=== PATIENT | male | born 1965 | race Caucasian/White ===

== ENCOUNTER 2018-05-31 11:42 | Outpatient (CLI) | payer OTHER, SELFPAY ==
--- NOTE | 2018-05-31 11:54 | DI.RAD_ITS ---
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 There is some sclerosis and irregularity of the patella presumably secondary to an old injury. There may be a small joint effusion. No acute fracture or dislocation is seen.
== END 2018-05-31 12:02 ==
PROVIDERS: PCP Emergency Medicine; Visit Provider Internal Medicine
DX: M25.561 Pain in right knee (principal); M17.11 Unilateral primary osteoarthritis, right knee; M25.461 Effusion, right knee
CPT/HCPCS: 73562

== ENCOUNTER 2018-06-07 14:44 | Emergency (ER) | payer OTHER, SELFPAY ==
[2018-06-07 14:47] VITALS: BP 137/75; PULSE 95; RESP 12; TEMP 36.5; O2SAT 96
--- NOTE | 2018-06-07 15:02 | W.ED.GENAD ---
Discharge Plan Disposition Patient Disposition: HOME Condition: Stable Discharge Details Chief Complaint: Palpitatns Clinical Impression: Palpitations Primary Care Provider: Zion Zepeda ED Provider: Eliseo Jim Home Meds and New Rx's Prescriptions: No Action BABY ASPIRIN 81 MG TAB.CHEW 81 mg PO DAILY RF: 0 Stelara 45 MG/0.5 ML syringe 45 mg SQ every 12 weeks Qty: 1 RF: 12 atorvastatin 80 mg tablet 80 mg PO DAILY Qty: 90 RF: 3 metoprolol succinate 50 mg tablet extended release 24 hr 50 mg PO DAILY Qty: 90 RF: 0 Discharge Instructions Instructions: Palpitations (ED) Additional Instructions: follow up with your primary care provider or stratigrapher within a week and discuss having a holter monitor or other library monitor if you have worsening symptoms, severe pain or shortness of breath return to the emergency department Medical Decision Making 52 yo male with hx of cad, aaa with repair, comes in with chief complaint of palpitations. He states he went to bed feeling well and then had 10 minutes or so of feeling his heart racing, did not lose consciousness or have sensation that he may lose consciousness. He denies fevers, chills, chest pain, sob. Had no pain or pressure with this. 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 He is speaking in full sentences in no distress, clear lungs. Given his history will obtain troponin to eval for nstemi though seems unlikely given description of the pain. Given no feeling like he may lose consciousness doubt presyncope, vtach or other concerning arrythmias. No tearing back pain and normal vascular exam sodoubt dissection. No hypoxia, tachycardia or evidence of dvt so doubt pe at this time pt remains asymptomatic now, labs unremarkable. will d/c home and advised f/u with pcp and return precautions given Differential Diagnosis afib, svt, acs Lab Data Lab results reviewed: Yes I reviewed the patient's lab results. ECG Data Attestation: I personally reviewed and interpreted this ECG (s) as follows: Prior ECG tracings: available for review Interpretation: sinus rhythm, rate of 70, pr 156, qtc 424, no acute st t wave ischemic changes when compared to old ekg HPI General Mode of arrival: ambulatory. Date/Time Provider Initiated Documentation: 06/07/18 14:55. Limitations to Documentation: no limitations. Information obtained by: patient. History of Present Illness 52 year old M presents to the emergency department with the chief complaint of palpitations, described as moderate, and is localized to the chest. Patient reports no radiation. Patient started experiencing this day(s) (1) and it has been now resolved. No relieving factors improve symptom(s), No exacerbating factors reported . Patient notes no other symptoms.. Patient did receive the following treatments prior to arrival, none Related Data Home Medications Medication Instructions Recorded Confirmed Baby Aspirin 81 mg PO DAILY tab-cap 11/15/12 06/07/18 ustekinumab [Stelara] 45 mg SQ every 12 weeks #1 syringe 10/28/15 06/07/18 atorvastatin 80 mg tablet 80 mg PO DAILY #90 tab-cap 05/08/18 06/07/18 metoprolol succinate ER 50 mg 50 mg PO DAILY #90 tab 05/08/18 06/07/18 tablet,extended release 24 hr Previous Rx's Medication Instructions Recorded atorvastatin 80 mg tablet 80 mg PO DAILY #90 tab-cap 05/08/18 metoprolol succinate ER 50 mg 50 mg PO DAILY #90 tab 05/08/18 tablet,extended release 24 hr Allergies Allergy/AdvReac Type Severity Reaction Status Date / Time adalimumab [From Humira] Allergy Intermediate hives Unverified 05/31/18 10:33 General Stated Complaint: Palpitatns EZEQUIEL: 3 Review of Systems Review of Systems All systems reviewed & are unremarkable except as noted in HPI and below Constitutional Denies chills, Denies fever(s) and Denies weakness Cardiovascular Denies dyspnea Respiratory Denies cough and Denies dyspnea Gastrointestinal Denies abdominal pain, Denies nausea and Denies vomiting Musculoskeletal Denies joint swelling Integumentary/Breasts Denies rash Neurologic Denies weakness [facility] Surgical History Repair of inguinal hernia (~2001) Stent placement (~2002) Vasectomy (~2001) Social History Smoking/Tobacco Use Status: Never Alcohol Intake: never Substance use type: marijuana Do you feel safe in your relationship?: Yes Exam Const General: no acute distress Orientation: alert HENTX Head: normal to inspection Ears: external ears normal General nose exam: external nose normal Mouth: moist mucous membranes Eyes General: appearance normal, both eyes and all related structures Neck Neck: normal visual inspection Resp Effort & Inspection: normal respiratory effort and able to speak in complete sentences Cardio Rate: regular rate Skin General skin exam: no rashes or lesions noted Neuro General: alert and oriented x3 Extrem General: normal to inspection Psych Mental Status: mental status grossly normal Course Vital Signs Temperature 36.5 C 06/07/18 14:47 Pulse 95 H 06/07/18 14:47 Respiratory Rate 12 06/07/18 14:47 Blood Pressure 137/75 06/07/18 14:47 Pulse Oximetry 96 06/07/18 14:47 Temperature 36.5 C 06/07/18 14:47 Temperature Source Temporal Artery Scan 06/07/18 14:47 Pulse 95 H 06/07/18 14:47 Respiratory Rate 12 06/07/18 14:47 Blood Pressure 137/75 06/07/18 14:47 Blood Pressure Position Sitting 06/07/18 14:47 Pulse Oximetry 96 06/07/18 14:47 Oxygen Delivery Method Room Air 06/07/18 14:47 Oxygen Flow Rate 0 06/07/18 14:47 Pain Level 0 06/07/18 14:47
[2018-06-07 15:06] LABS: Abs Immature Grans 0.03 k/cumm (0.0-0.09); Absolute Basophil Count 0.07 k/cumm (0.0-0.2); Absolute Eosinophil Count 0.47 k/cumm (0.0-0.7); Absolute Lymphocyte Count 2.38 k/cumm (1.2-3.4); Absolute Monocyte Count 0.66 k/cumm (0.11-0.7); Absolute Neutrophil Count 4.47 k/cumm (1.2-6.7); Basophils % 0.9; Eosinophils % 5.8; Immature Grans % 0.4; Lymphocytes % 29.5; Mean Corp. HGB Concentration 34.8 g/dL (32.0-36.0); Mean Corpuscular Hemoglobin 31.4 pg (27.0-33.0); Mean Corpuscular Volume 90.4 fL (80-95); Mean Platelet Volume 9.4 fL (8.0-11.0); Monocytes % 8.2; Neutrophils % 55.2; Platelet Count 248 x1000/uL (130-400); RBC 5.09 m/cumm (4.50-6.00); RBC Distribution Width 14.9 % (11.8-14.1); White Blood Cell Count 8.08 k/cumm (4.4-10.8)
--- NOTE | 2018-06-07 15:08 | ED.GENADUL_ITS ---
Discharge Plan Disposition Patient Disposition: HOME Condition: Stable Discharge Details Chief Complaint: Palpitatns Clinical Impression: Palpitations Primary Care Provider: Zion Zepeda ED Provider: Eliseo Jim Home Meds and New Rx's Prescriptions: No Action BABY ASPIRIN 81 MG TAB.CHEW 81 mg PO DAILY RF: 0 Stelara 45 MG/0.5 ML syringe 45 mg SQ every 12 weeks Qty: 1 RF: 12 atorvastatin 80 mg tablet 80 mg PO DAILY Qty: 90 RF: 3 metoprolol succinate 50 mg tablet extended release 24 hr 50 mg PO DAILY Qty: 90 RF: 0 Discharge Instructions Instructions: Palpitations (ED) Additional Instructions: follow up with your primary care provider or director of athletics within a week and discuss having a holter monitor or other cardiac rn if you have worsening symptoms, severe pain or shortness of breath return to the emergency department Medical Decision Making 52 yo male with hx of cad, aaa with repair, comes in with chief complaint of palpitations. He states he went to bed feeling well and then had 10 minutes or so of feeling his heart racing, did not lose consciousness or have sensation that he may lose consciousness. He denies fevers, chills, chest pain, sob. Had no pain or pressure with this. 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 He is speaking in full sentences in no distress, clear lungs. Given his history will obtain troponin to eval for nstemi though seems unlikely given description of the pain. Given no feeling like he may lose consciousness doubt presyncope, vtach or other concerning arrythmias. No tearing back pain and normal vascular exam sodoubt dissection. No hypoxia, tachycardia or evidence of dvt so doubt pe at this time pt remains asymptomatic now, labs unremarkable. will d/c home and advised f/u with pcp and return precautions given Differential Diagnosis afib, svt, acs Lab Data Lab results reviewed: Yes I reviewed the patient's lab results. ECG Data Attestation: I personally reviewed and interpreted this ECG (s) as follows: Prior ECG tracings: available for review Interpretation: sinus rhythm, rate of 70, pr 156, qtc 424, no acute st t wave is chemic changes when compared to old ekg HPI General Mode of arrival: ambulatory . Date/Time Provider Initiated Documentation: 06/07/18 14:55 . Limitations to Documentation: no limitations . Information obtained by: patient . History of Present Illness 52 year old M presents to the emergency department with the chief complaint of palpitations, described as moderate, and is localized to the chest. Patient reports no radiation. Patient started experiencing this day(s) (1) and it has been now resolved. No relieving factors improve symptom(s), No exacerbating factors reported . Patient notes no other symptoms.. Patient did receive the following treatments prior to arrival, none Related Data Home Medications Medication Instructions Recorded Confirmed Baby Aspirin 81 mg PO DAILY tab-cap 11/15/12 06/07/18 ustekinumab [Stelara] 45 mg SQ every 12 weeks #1 syringe 10/28/15 06/07/18 atorvastatin 80 mg tablet 80 mg PO DAILY #90 tab-cap 05/08/18 06/07/18 metoprolol succinate ER 50 mg 50 mg PO DAILY #90 tab 05/08/18 06/07/18 tablet,extended release 24 hr Previous Rx's Medication Instructions Recorded atorvastatin 80 mg tablet 80 mg PO DAILY #90 tab-cap 05/08/18 metoprolol succinate ER 50 mg 50 mg PO DAILY #90 tab 05/08/18 tablet,extended release 24 hr Allergies Allergy/AdvReac Type Severity Reaction Status Date / Time adalimumab [From Humira] Allergy Intermediate hives Unverified 05/31/18 10:33 General Stated Complaint: Palpitatns EZEQUIEL: 3 Review of Systems Review of Systems All systems reviewed & are unremarkable except as noted in HPI and below Constitutional Denies chills, Denies fever(s) and Denies weakness Cardiovascular Denies dyspnea Respiratory Denies cough and Denies dyspnea Gastrointestinal Denies abdominal pain, Denies nausea and Denies vomiting Musculoskeletal Denies joint swelling Integumentary/Breasts Denies rash Neurologic Denies weakness [facility] Surgical History Repair of inguinal hernia (~2001) Stent placement (~2002) Vasectomy (~2001) Social History Smoking/Tobacco Use Status: Never Alcohol Intake: never Substance use type: marijuana Do you feel safe in your relationship?: Yes Exam Const General: no acute distress Orientation: alert HENMT Head: normal to inspection Ears: external ears normal General nose exam: external nose normal Mouth: moist mucous membranes Eyes General: appearance normal, both eyes and all related structures Neck Neck: normal visual inspection Resp Effort & Inspection: normal respiratory effort and able to speak in complete sentences Cardio Rate: regular rate Skin General skin exam: no rashes or lesions noted Neuro General: alert and oriented x3 Extrem General: normal to inspection Psych Mental Status: mental status grossly normal Course Vital Signs Temperature 36.5 C 06/07/18 14:47 Pulse 95 H 06/07/18 14:47 Respiratory Rate 12 06/07/18 14:47 Blood Pressure 137/75 06/07/18 14:47 Pulse Oximetry 96 06/07/18 14:47 Temperature 36.5 C 06/07/18 14:47 Temperature Source Temporal Artery Scan 06/07/18 14:47 Pulse 95 H 06/07/18 14:47 Respiratory Rate 12 06/07/18 14:47 Blood Pressure 137/75 06/07/18 14:47 Blood Pressure Position Sitting 06/07/18 14:47 Pulse Oximetry 96 06/07/18 14:47 Oxygen Delivery Method Room Air 06/07/18 14:47 Oxygen Flow Rate 0 06/07/18 14:47 Pain Level 0 06/07/18 14:47
[2018-06-07 15:20] LABS: PTT Activated 22.1 sec (21.0-31.4)
[2018-06-07 15:40] VITALS: BP 112/66; PULSE 65; RESP 16; O2SAT 24
[2018-06-07 15:46] LABS: ALT 74 U/L (12-78); AST 46 U/L (15-37); Albumin 4.4 g/dL (3.4-5.0); Alkaline Phosphatase 73 U/L (46-116); Anion Gap 8.4 mmol/L (3-11); BUN 13 mg/dL (7-18); Bilirubin, Total 0.7 mg/dL (0.2-1.0); CO2 29.6 mmol/L (21.0-32.0); CREATININE 0.92 mg/dL (0.70-1.30); Calcium 9.4 mg/dL (8.5-10.1); Chloride 99 mmol/L (98-107); Glucose 86 mg/dL (70-100); Potassium 3.9 mmol/L (3.5-5.1); Sodium 137 mmol/L (136-145); Total Protein 8.5 g/dL (6.4-8.2); Troponin I 0.02 ng/mL (0.00-0.06)
== END 2018-06-07 15:59 | disposition home or self-care (01) ==
PROVIDERS: Emergency Provider Emergency Medicine; PCP Emergency Medicine
DX: R00.2 Palpitations (principal); I25.10 Atherosclerotic heart disease of native coronary artery without angina pectoris; I10 Essential (primary) hypertension; Z98.890 Other specified postprocedural states
CPT/HCPCS: 36415; 80053; 93005; 99284; 84484; 85025; 85610; 85730; 93010

== ENCOUNTER 2018-06-13 01:03 | Outpatient (CLI) | payer OTHER, SELFPAY ==
--- NOTE | 2018-06-13 14:01 | DI.MRI_ITS ---
SYMPTOMS/DIAGNOSIS: RIGHT KNEE PAIN, M25.561, PERSONAL H/O HEALED TRAUMATIC FX, Z87.81 MRI OF THE RIGHT KNEE: Routine noncontrast examination was performed. There is no evidence of a meniscal tear. The anterior cruciate and posterior cruciate ligaments are intact, as are the medial and lateral collateral ligament complexes, extensor mechanism and medial and lateral retinacula. There is thinning of the articular cartilage and subchondral edema at the patellofemoral joint. The articular cartilage over the femorotibial joints appears well maintained. There is a small amount of fluid in the joint space. No evidence of a popliteal cyst is seen. The marrow signal shows no evidence of an occult fracture or avascular necrosis. There is edema seen around the popliteus muscle. There does appear to be some increased signal within the popliteus muscle also. IMPRESSION: 1. No evidence of a meniscal or ligament tear. 2. Osteoarthritis of the patellofemoral joint. 3. Edema seen within and around the popliteus muscle. This may reflect muscle injury. No evidence of a complete muscle tear is identified.
== END 2018-06-13 01:23 ==
PROVIDERS: PCP Emergency Medicine; Visit Provider Internal Medicine
DX: M25.561 Pain in right knee (principal); Z87.81 Personal history of (healed) traumatic fracture; M17.11 Unilateral primary osteoarthritis, right knee; R60.0 Localized edema
CPT/HCPCS: 73721

== ENCOUNTER 2018-06-14 00:16 | Outpatient (CLI) | payer OTHER, SELFPAY ==
--- NOTE | 2018-06-14 06:57 | MERGEMPI_ITS ---
*[facility]* *[facility]* [address] [place] [address] Myocardial Perfusion Imaging - SPECT Angel protocol Date of study: 06/14/2018 *PATIENT PRESENTATION* Height: 172.7cm (68in) Blood Pressure: Weight: 95.5kg (210lb) BSA: 2.17m^2 Referring physician: Sarthak Malone Ordering physician: Zion Zepeda Impressions: Study suggests moderate myocardial ischemia, in the territory of the left circumflex coronary artery. Summary: 1. Myocardial perfusion imaging: There is a moderate sized, moderately intense, fully reversible defect involving the basal anterolateral and mid anterolateral and apical lateral wall(s). This suggests moderate ischemia in the distribution of the left circumflex coronary artery. 2. The calculated left ventricular ejection fraction after stress: 46%. LV global systolic function is mildly reduced. There is hypokinesis involving the anterolateral wall(s) of the left ventricle. 3. Stress ECG conclusions: The stress ECG is positive. 4. Stress: The target heart rate was not achieved. The heart rate response to stress is blunted by beta blockers. There is a normal resting blood pressure with an appropriate response to stress. The patient experienced no chest pain during stress. Exercise capacity is above normal for age. 5. Baseline ECG: Sinus bradycardia. Nonspecific ST and T wave changes. Recommendations: Cardiac catheterization should be performed. This procedure has been discussed with the patient. 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 Indication: R00.2, Appropriate Use Criteria: A (Appropriate). History: REASON FOR VISIT: PALPITATIONS, ARRYTHMIA, HISTORY OF MYOCARDIAL INFARCTION AT AGE 38 YEARS. CARDIAC STENT X2. PT DENIES CHEST PAINS. Risk factors: Hypertension. Obesity. Dyslipidemia. Cholesterol: 143mg/dl. HDL: 36mg/dl. LDL: 78mg/dl. Triglycerides: 241mg/dl. ALLERGIES: ADALIMUMAB. MEDICATIONS: USTEKINUMAB (STELARA) 45 MG SQ EVERY 12 WEEKS. METOPROLOL SUCCINATE 50 MG DAILY. ATORVASTATIN 80 MG DAILY. ASPIRIN 81 MG DAILY. Imaging Technique: Protocol: Angel protocol. Acquisition: Gated SPECT; 1 day - rest/stress. The patient was imaged in the supine position. Attenuation correction used. Isotope administration: - Rest. Tc[99m]-sestamibi. Dose: 9.9mCi. Injection time: 11:30 AM. Injection to stress time: 00:45. - Stress. Tc[99m]-sestamibi. Dose: 31.6mCi. Injection time: 01:25 PM. 1-2 min before end of exercise Baseline ECG: SINUS BRADYCARDIA. HR 51 BPM. Sinus bradycardia. Nonspecific ST and T wave changes. Stress results: Maximal heart rate during stress was 124bpm (73% of maximal predicted heart rate). The maximal predicted heart rate was 170bpm. The target heart rate was not achieved. The heart rate response to stress is blunted by beta blockers. There is a normal resting blood pressure with an appropriate response to stress. The patient experienced no chest pain during stress. Exercise capacity is above normal for age. Stress ECG: TREADMILL PORTION OF STRESS TEST ENDED IN 12 MINUTES DUE TO FATIGUE BLUNTED HEART RATE AND BLOOD PRESSURE RESPONSE TO EXERCISE PT DID NOT MEET TARGET HEART RATE. MAX HR = 124 % OF TARGET = 72 NO ECTOPY APPROXIMATE METS ACHIEVED = 13.57 NO ANGINA NO SIGNIFICANT ST SEGMENT CHANGES ABOVE AVERAGE FUNCTIONAL CAPACITY FOR EXERCISE TRANSITIONED PT TO LEXISCAN PROTOCOL AFTER PT REACHED 72% OF TARGET HR AND UNABLE TO EXERCISE ANY FURTHER. NO ECTOPY NO ANGINA. ST SEGMENT DEPRESSIONS NOTED IN LEADS V3, V4, V5 AND V6 1 MINUTE & 22 SECON[address]AN INJECTION. [address] SEGMENTS RETURNED TO BASELINE 8 MINUTES POST LEXISCAN INJECTION. The stress ECG is positive. Stress ECG change: horizontal depression. Severity: 1.5-2.0mm. In lead groups: V4, V5 and V6. In individual leads:V3. Myocardial perfusion: Imaging information: gated. The image quality was good. Left ventricular size is normal. There is a moderate sized, moderately intense, fully reversible defect involving the basal anterolateral and mid anterolateral and apical lateral wall(s). This suggests moderate ischemia in the distribution of the left circumflex coronary artery. Ventricular Function (Wall Motion): The calculated left ventricular ejection fraction after stress: 46%. LV global systolic function is mildly reduced. There is hypokinesis involving the anterolateral wall(s) of the left ventricle. Study data: Sarthak Malone MD supervised and was readily available during the procedure. This study was interpreted by [facility]. Study status: Routine. Consent: The risks, benefits, and alternatives to the procedure were explained to the patient and informed consent was obtained. Procedure: Initial setup. A baseline ECG was recorded. Surface ECG leads and manual cuff blood pressure measurements were monitored. Heart sounds: Normal. Lung sounds: Normal. Treadmill exercise testing was performed using the Angel protocol. The patient exercised for 12 min, to protocol stage 4, to a maximal work rate of 13.6mets. Exercise was terminated due to fatigue. Study completion: All catheters inserted during the procedure were removed. The patient tolerated the procedure well and was discharged from the lab. Discharge: The patient left the laboratory in stable condition. Birthdate: Patient birthdate: 1965. Sex: Gender: male. Study date: Study date: 06/14/2018. Study time: 00:01 AM. Signature Documentation: - The imaging portion of this study was interpreted by Nuclear Punch Out Crew Member Sarthak Malone MD. - The Stress ECG portion of this study was interpreted by Sarthak Malone MD. Electronically signed by Sarthak Malone 06/14/2018 16:05
[2018-06-14] MEDS: Regadenoson 0.4 MG/5 ML SYR IVP (14:15)
== END 2018-06-14 00:36 ==
PROVIDERS: PCP Emergency Medicine; Visit Provider Emergency Medicine
DX: R00.2 Palpitations (principal); I25.10 Atherosclerotic heart disease of native coronary artery without angina pectoris; I25.2 Old myocardial infarction; E78.5 Hyperlipidemia, unspecified; I10 Essential (primary) hypertension
CPT/HCPCS: 78452; 93017; J2785

== ENCOUNTER 2018-06-28 08:39 | Emergency (ER) | payer OTHER, SELFPAY ==
[2018-06-28] VITALS (75 sets, daily range): BP systolic 115–143; BP diastolic 66–104; PULSE 55–84; RESP 15–29; TEMP 36.3; O2SAT 93–98
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
[2018-06-28 09:27] LABS: Abs Immature Grans 0.05 k/cumm (0.0-0.09); Absolute Basophil Count 0.04 k/cumm (0.0-0.2); Absolute Eosinophil Count 0.42 k/cumm (0.0-0.7); Absolute Lymphocyte Count 1.22 k/cumm (1.2-3.4); Absolute Monocyte Count 0.53 k/cumm (0.11-0.7); Absolute Neutrophil Count 4.83 k/cumm (1.2-6.7); Basophils % 0.6; Eosinophils % 5.9; HCT 45.1 % (40.0-50.0); HGB 15.7 g/dL (13.5-17.5); Immature Grans % 0.7; Lymphocytes % 17.2; Mean Corp. HGB Concentration 34.8 g/dL (32.0-36.0); Mean Corpuscular Hemoglobin 31.7 pg (27.0-33.0); Mean Corpuscular Volume 91.1 fL (80-95); Mean Platelet Volume 9.2 fL (8.0-11.0); Monocytes % 7.5; Neutrophils % 68.1; Platelet Count 194 x1000/uL (130-400); RBC 4.95 m/cumm (4.50-6.00); RBC Distribution Width 14.7 % (11.8-14.1); White Blood Cell Count 7.09 k/cumm (4.4-10.8)
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
[2018-06-28 09:40] LABS: Prothrombin Time 9.9 sec (9.3-11.0)
[2018-06-28 09:49] LABS: NT-proBNP 72 pg/mL
[2018-06-28 09:52] LABS: ALT 79 U/L (12-78); AST 44 U/L (15-37); Albumin 4.1 g/dL (3.4-5.0); Alkaline Phosphatase 68 U/L (46-116); Anion Gap 9.5 mmol/L (3-11); BUN 14 mg/dL (7-18); Bilirubin, Total 0.6 mg/dL (0.2-1.0); CO2 27.5 mmol/L (21.0-32.0); CREATININE 0.92 mg/dL (0.70-1.30); Calcium 9.3 mg/dL (8.5-10.1); Chloride 102 mmol/L (98-107); Glucose 112 mg/dL (70-100); Potassium 4.4 mmol/L (3.5-5.1); Sodium 139 mmol/L (136-145); Total Protein 8.1 g/dL (6.4-8.2)
[2018-06-28 09:54] LABS: Troponin I < 0.02 ng/mL (0.00-0.06)
--- NOTE | 2018-06-28 10:13 | NUR.NOTE ---
Nursing Note: DC IV intact bleeding controlled. discussed discharge instructions, rx meds and follow up care with pt. Pt verbalized an understanding. PT ambulated out the door with steady gait.
[2018-06-28] MEDS: Acetaminophen 325 MG TAB (13:58)
[2018-06-28] MEDS: Ibuprofen 600 MG TAB PO (13:59)
[2018-06-28 15:41] LABS: Troponin I < 0.02 ng/mL (0.00-0.06)
--- NOTE | 2018-06-28 16:30 | PGE_ITS ---
Date of Service Date of service: 06/28/18 Time of Service: 16:30 Subjective Interval history since last seen: Patient left AMA prior to formal admission being done. I did speak with him about the fact that his condition is critical and that he should strongly consider going to [facility] since [facility] does not have any available beds. He verbalized understanding. Objective Objective Clinical Data: Abnormal lab results 06/28/18 06/28/18 Range/Units 09:20 09:20 RDW 14.7 H (11.8-14.1) % Glucose 112 H (70-100) mg/dL AST 44 H (15-37) U/L ALT 79 H (12-78) U/L Vital Signs Temperature 36.3 C L 06/28/18 08:51 Temperature Source Skin 06/28/18 08:51 Pulse 83 06/28/18 16:01 Pulse 81 06/28/18 16:01 Respiratory Rate 20 06/28/18 16:01 Respiratory Effort Non-Labored 06/28/18 09:41 Respiratory Depth Normal 06/28/18 09:41 Respiratory Pattern Normal 06/28/18 09:41 Blood Pressure 137/77 06/28/18 16:01 Blood Pressure Mean 88 06/28/18 16:01 Blood Pressure Position Supine 06/28/18 08:51 Pulse Oximetry 95 06/28/18 16:01 Oxygen Delivery Method Room Air 06/28/18 08:51 Oxygen Flow Rate 0 06/28/18 08:51 Pain Level 0 06/28/18 10:10 Intake & Output 06/27/18 06/28/18 06/28/18 23:59 11:59 23:59 Weight 95.254 kg Laboratory Results WBC 7.09 k/cumm (4.4-10.8) 06/28/18 09:20 RBC 4.95 m/cumm (4.50-6.00) 06/28/18 09:20 Hgb 15.7 g/dL (13.5-17.5) 06/28/18 09:20 Hct 45.1 % (40.0-50.0) 06/28/18 09:20 MCV 91.1 fL (80-95) 06/28/18 09:20 MCH 31.7 pg (27.0-33.0) 06/28/18 09:20 MCHC 34.8 g/dL (32.0-36.0) 06/28/18 09:20 RDW 14.7 % (11.8-14.1) H 06/28/18 09:20 Plt Count 194 x1000/uL (130-400) 06/28/18 09:20 MPV 9.2 fL (8.0-11.0) 06/28/18 09:20 Immature Gran % 0.7 06/28/18 09:20 Neutrophils % 68.1 06/28/18 09:20 Lymphocytes % 17.2 06/28/18 09:20 Monocytes % 7.5 06/28/18 09:20 Eosinophils % 5.9 06/28/18 09:20 Basophils % 0.6 06/28/18 09:20 Absolute Neutrophils 4.83 k/cumm (1.2-6.7) 06/28/18 09:20 Absolute Lymphocytes 1.22 k/cumm (1.2-3.4) 06/28/18 09:20 Absolute Monocytes 0.53 k/cumm (0.11-0.7) 06/28/18 09:20 Absolute Eosinophils 0.42 k/cumm (0.0-0.7) 06/28/18 09:20 Absolute Basophils 0.04 k/cumm (0.0-0.2) 06/28/18 09:20 PT 9.9 sec (9.3-11.0) 06/28/18 09:20 INR 1.0 (0.9-1.1) 06/28/18 09:20 Sodium 139 mmol/L (136-145) 06/28/18 09:20 Potassium 4.4 mmol/L (3.5-5.1) 06/28/18 09:20 Chloride 102 mmol/L (98-107) 06/28/18 09:20 Carbon Dioxide 27.5 mmol/L (21.0-32.0) 06/28/18 09:20 Anion Gap 9.5 mmol/L (3-11) 06/28/18 09:20 BUN 14 mg/dL (7-18) 06/28/18 09:20 Creatinine 0.92 mg/dL (0.70-1.30) 06/28/18 09:20 Estimated GFR/1.73 m2 >= 60.00 (mL/min/1.73m2) 06/28/18 09:20 Glucose 112 mg/dL (70-100) H 06/28/18 09:20 Calcium 9.3 mg/dL (8.5-10.1) 06/28/18 09:20 Total Bilirubin 0.6 mg/dL (0.2-1.0) 06/28/18 09:20 AST 44 U/L (15-37) H 06/28/18 09:20 ALT 79 U/L (12-78) H 06/28/18 09:20 Alkaline Phosphatase 68 U/L (46-116) 06/28/18 09:20 Troponin I < 0.02 ng/mL (0.00-0.06) 06/28/18 15:10 NT-Pro-B Natriuret Pep 72 pg/mL (-299) 06/28/18 09:20 Total Protein 8.1 g/dL (6.4-8.2) 06/28/18 09:20 Albumin 4.1 g/dL (3.4-5.0) 06/28/18 09:20 Patient ABO/Rh B Positive 06/28/18 09:20 Antibody Screen Negative 06/28/18 09:20
--- NOTE | 2018-06-28 18:24 | NUR.NOTE ---
Nursing Note: At the request of the nursing marketing sales supervisor, Jennifer Clark, I faxed today's entire ED visit to [facility]. Patient presented there for care and this was at their request. Maru Clark. Fax [facility] [phone]
== END 2018-06-28 16:24 | disposition left against medical advice (07) ==
PROVIDERS: Internal Medicine; Emergency Provider Student in an Organized Health Care Education/Training Program; PCP Emergency Medicine
DX: R55 Syncope and collapse (principal); S50.312A Abrasion of left elbow, initial encounter; S00.01XA Abrasion of scalp, initial encounter; V86.55XA Driver of 3- or 4- wheeled all-terrain vehicle (ATV) injured in nontraffic accident, initial encounter; R07.81 Pleurodynia; R94.31 Abnormal electrocardiogram [ECG] [EKG]; R94.39 Abnormal result of other cardiovascular function study; I10 Essential (primary) hypertension; I25.10 Atherosclerotic heart disease of native coronary artery without angina pectoris; Z53.29 Procedure and treatment not carried out because of patient's decision for other reasons
CPT/HCPCS: 36415; 80053; 86850; 86900; 86901; 93005; 99285; NC; 70450; 71046; 71100; 72125; 83880; 84484; 85025; 85610; 93010; 99284

== ENCOUNTER 2018-07-14 08:43 | Outpatient (CLI) | payer OTHER, SELFPAY ==
[2018-07-14 11:15] LABS: HCT 28.6 % (40.0-50.0); HGB 9.2 g/dL (13.5-17.5); Mean Corp. HGB Concentration 32.2 g/dL (32.0-36.0); Mean Corpuscular Hemoglobin 31.7 pg (27.0-33.0); Mean Corpuscular Volume 98.6 fL (80-95); Mean Platelet Volume 8.9 fL (8.0-11.0); Platelet Count 424 x1000/uL (130-400); White Blood Cell Count 13.51 k/cumm (4.4-10.8)
[2018-07-14 11:24] LABS: BUN 19 mg/dL (7-18); CREATININE 0.97 mg/dL (0.70-1.30); Calcium 9.1 mg/dL (8.5-10.1); Chloride 101 mmol/L (98-107); Glucose 145 mg/dL (70-100); Potassium 4.5 mmol/L (3.5-5.1); Sodium 136 mmol/L (136-145)
[2018-07-14 11:32] LABS: INR 1.8 (0.9-1.1); Prothrombin Time 17.7 sec (9.3-11.0)
[2018-07-14 11:38] LABS: Creatine Kinase 87 U/L (39-308)
== END 2018-07-14 09:03 ==
PROVIDERS: PCP Emergency Medicine; Visit Provider Emergency Medicine
DX: Z95.1 Presence of aortocoronary bypass graft (principal); I10 Essential (primary) hypertension
CPT/HCPCS: 36415; 80048; 82550; 85027; 85610

== ENCOUNTER 2018-07-19 01:01 | Outpatient (CLI) | payer OTHER, SELFPAY ==
--- NOTE | 2018-07-19 08:58 | DI.RAD_ITS ---
SYMPTOM/DIAGNOSIS: S/P CABG, Z95.1, S/P MVR,Z95.2 PA AND LATERAL CHEST: Comparison is made with 06/28/18. Heart size and pulmonary vasculature are within normal limits. The patient is status post CABG and mitral valve replacement since the prior examination. There is blunting of the left costophrenic angle suggesting a small left pleural effusion. There is scarring or atelectasis in the left lung base. No focal consolidating infiltrates or pneumothoraces are identified. No acute osseous abnormality is identified. IMPRESSION: 1. Interim status post CABG and mitral valve replacement. 2. Blunting of the left costophrenic angle suggesting a small pleural effusion.
== END 2018-07-19 01:21 ==
PROVIDERS: PCP Emergency Medicine
DX: Z95.1 Presence of aortocoronary bypass graft (principal); Z95.2 Presence of prosthetic heart valve; J90 Pleural effusion, not elsewhere classified
CPT/HCPCS: 71046

== ENCOUNTER 2018-07-31 02:32 | Outpatient (CLI) | payer OTHER, SELFPAY ==
[2018-07-31 10:58] LABS: INR 3.6 (0.9-1.1); Prothrombin Time 36.7 sec (9.3-11.0)
== END 2018-07-31 02:52 ==
PROVIDERS: Thoracic Surgery (Cardiothoracic Vascular Surgery); PCP Emergency Medicine; Visit Provider Emergency Medicine
DX: Z95.2 Presence of prosthetic heart valve (principal); Z79.01 Long term (current) use of anticoagulants; I25.10 Atherosclerotic heart disease of native coronary artery without angina pectoris
CPT/HCPCS: 36415; 85610

== ENCOUNTER 2018-08-03 06:58 | Outpatient (CLI) | payer OTHER, SELFPAY ==
[2018-08-03 13:05] LABS: INR 2.7 (0.9-1.1); Prothrombin Time 27.4 sec (9.3-11.0)
== END 2018-08-03 07:18 ==
LOC: LBO 07:00 → LOS 12:50
PROVIDERS: PCP Emergency Medicine; Visit Provider Thoracic Surgery (Cardiothoracic Vascular Surgery)
DX: Z95.2 Presence of prosthetic heart valve (principal); Z79.01 Long term (current) use of anticoagulants
CPT/HCPCS: 36415; 85610

== ENCOUNTER 2018-08-07 11:35 | Outpatient (CLI) | payer OTHER, SELFPAY ==
[2018-08-07 15:33] LABS: Prothrombin Time 25.7 sec (9.3-11.0)
[2018-08-07 15:39] LABS: INR 2.5 (0.9-1.1)
== END 2018-08-07 11:55 ==
PROVIDERS: PCP Emergency Medicine; Visit Provider Thoracic Surgery (Cardiothoracic Vascular Surgery)
DX: Z95.2 Presence of prosthetic heart valve (principal); Z79.01 Long term (current) use of anticoagulants
CPT/HCPCS: 36415; 85610

== ENCOUNTER 2018-08-15 02:10 | Outpatient (CLI) | payer OTHER, SELFPAY ==
[2018-08-15 11:53] LABS: INR 2.1 (0.9-1.1); Prothrombin Time 21.5 sec (9.3-11.0)
== END 2018-08-15 02:30 ==
PROVIDERS: PCP Emergency Medicine; Visit Provider Emergency Medicine
DX: Z95.2 Presence of prosthetic heart valve (principal); Z79.01 Long term (current) use of anticoagulants
CPT/HCPCS: 36415; 85610

== ENCOUNTER 2018-08-22 02:42 | Outpatient (CLI) | payer OTHER, SELFPAY ==
[2018-08-22 14:16] LABS: Prothrombin Time 20.4 sec (9.3-11.0)
== END 2018-08-22 03:02 ==
LOC: LOS 02:42 → LBO 13:37
PROVIDERS: PCP Emergency Medicine; Visit Provider Emergency Medicine
DX: I25.10 Atherosclerotic heart disease of native coronary artery without angina pectoris (principal); Z95.2 Presence of prosthetic heart valve; Z79.01 Long term (current) use of anticoagulants
CPT/HCPCS: 36415; 85610

== ENCOUNTER 2018-08-25 08:46 | Outpatient (CLI) | payer OTHER, SELFPAY ==
[2018-08-25 10:36] LABS: INR 1.9 (0.9-1.1); Prothrombin Time 18.8 sec (9.3-11.0)
== END 2018-08-25 09:06 ==
PROVIDERS: PCP Emergency Medicine; Visit Provider Thoracic Surgery (Cardiothoracic Vascular Surgery)
DX: Z95.2 Presence of prosthetic heart valve (principal); Z79.01 Long term (current) use of anticoagulants
CPT/HCPCS: 36415; 85610

== ENCOUNTER 2018-09-01 04:16 | Outpatient (CLI) | payer OTHER, SELFPAY ==
[2018-09-01 14:04] LABS: INR 2.6 (0.9-1.1); Prothrombin Time 26.2 sec (9.3-11.0)
== END 2018-09-01 04:36 ==
PROVIDERS: Thoracic Surgery (Cardiothoracic Vascular Surgery); PCP Emergency Medicine; Visit Provider Emergency Medicine
DX: Z95.2 Presence of prosthetic heart valve (principal)
CPT/HCPCS: 36415; 85610

== ENCOUNTER 2019-01-23 14:16 | Emergency (ER) | payer OTHER, SELFPAY ==
[2019-01-23 14:19] VITALS: BP 143/102; PULSE 95; RESP 20; TEMP 36.5; O2SAT 95
--- NOTE | 2019-01-23 14:33 | ED.GENADUL_ITS ---
Discharge Plan Disposition Patient Disposition: HOME Condition: Good Discharge Details Chief Complaint: Abd Prob Clinical Impression: Epiploic appendagitis, Anxiety Primary Care Provider: Zion Zepeda ED Provider: Brandon Sharp Home Meds and New Rx's Prescriptions: New alprazolam [Xanax] 0.5 mg tablet 0.5 mg PO DAILY Qty: 3 RF: 0 No Action potassium chloride 10 mEq tablet,ER particles/crystals 10 meq PO DAILY RF: 0 acetaminophen [Tylenol Extra Strength] 500 mg tablet 1,000 mg PO Q8H PRN PRNRF: 0 BABY ASPIRIN 81 MG TAB.CHEW 81 mg PO DAILY RF: 0 Stelara 45 MG/0.5 ML syringe 45 mg SQ every 12 weeks Qty: 1 RF: 12 atorvastatin 80 mg tablet 80 mg PO DAILY Qty: 90 RF: 3 metoprolol succinate 50 mg tablet extended release 24 hr 50 mg PO DAILY Qty: 90 RF: 3 amoxicillin 500 mg tablet 2,000 mg PO ONCE Qty: 20 RF: 0 warfarin [Coumadin] 5 mg tablet 5 - 10 mg PO DAILY Qty: 180 RF: 6 Discharge Instructions Instructions: Abdominal Pain (ED) Additional Instructions: At this time you have what is called epiploic appendagitis which is just irritation and inflammation of 1 of the small fat appendages that is noted on your colon. This does not require surgery. The rest of your labs show no evidence of significant infection or other abnormality. Thankfully this is very different than appendicitis or a gallbladder problem. It is important to take Tylenol to help reduce the inflammation. I would recommend 1000 mg every 6 hours for the next 2 to 3 days. If you notice any worsening of your symptoms, or any new symptoms such as vomiting, diarrhea, fever, chills, shortness of breath, chest pain, numbness, weakness, or fainting , please return immediately to the emergency department for reevaluation. Please follow up with your primary care provider as soon as possible for reassessment and reevaluation. As always, it was a pleasure participating in your medical care today. Referrals: Zion Zepeda, [Primary Care Provider] - Medical Decision Making This is a 53-year-old male with notable past medical history of psoriasis on Stelara, AAA that was repaired, CABG, and a mitral valve replacement on chronic Coumadin who presents today for evaluation of right mid to lower abdominal quadrant pain for the last 2 days. Throbbing in nature, steady and unchanging. No vomiting or diarrhea. No associated symptoms related to eating. Physical exam demonstrates mild reproducible right upper and right mid quadrant tenderness. Differential certainly includes gallbladder pathology but with a radiation down to the mid to lower abdomen appendiceal issues certainly on the differential. Unfortunately his history is complicated by his AAA, which I do not feel to be the acute etiology here today, however this does enhance my concern and need for initial CT scan. Pending this, if findings are not definitive, we will get an ultrasound of the right upper quadrant but I feel that CT scan is indicated at this time for further assessment. He wants nothing for pain. We will continue to monitor closely. 4:30 PM Patient's laboratory work-up has returned, no white count, no left shift, no electrolyte abnormalities, INR is 2.6, which is therapeutic. Troponin normal EKG unchanged. Lipase normal. Urinalysis negative for infection. CT scan results show no abnormality for gallbladder, however the patient does appear to have epiploic appendagitis. The appendix itself seems to be notably lower in the pelvis with no evidence of inflammation. The remainder of the CT scan findings including of his previously paired AAA are unremarkable per virtual radiology with no evidence of rupture. This time she continues to feel well. I did contact the surgeon Dr. Burrell did go over the case as he does certainly have some complicating factors of his chronic immunosuppression. However after discussion of the findings, including his absence of white count, fever chills she feels that no surgical intervention or antibiotics are indicated. Recommend continuation of NSAID therapy, and because of his Coumadin will recommend daily acetaminophen, close follow-up with his primary care provider. We discussed red flag which return. Patient remains not wanting anything for pain at this time. He continues to demonstrate a nonsurgical abdomen. I feel he is safe for discharge home. Of note the patient does admit to mild to moderate anxiety and has requested something to help with this. We will give 3 0.5 mg Xanax pills to go home with for PRN basis during his current mild abdominal pain state per his request. I have extensively reviewed the treatment plan and discharge instructions with the patient. I have addressed all patient concerns at this time. The patient was made aware of what symptoms to monitor for that would isaias ant a return to the emergency department. Discussed the plan with the patient, they demonstrate verbal understanding and agreement with our assessment and plan at this time. EKG 14: 26 Rate 88, VA 156, QTc 460, QRS 112, sinus rhythm, less than a millimeter of nonspecific ST elevation in V1 and V2, and less than [address] depression in lead II, however review of prior EKG from 06/28/2018 demonstrates identical findings. No evidence of acute change FINDINGS: Lungs: Subsegmental atelectasis versus infiltrate at the right pulmonary base. Heart: Mitral valve replacement. Liver: Fatty liver. Gallbladder and bile ducts: Normal. No calcified stones. No ductal dilation. Pancreas: Normal. No ductal dilation. Spleen: Normal. No splenomegaly. Adrenals: Normal. No mass. Kidneys and ureters: Subcentimeter right renal cysts. Stomach and bowel: Peanut shaped fatty lobulation adjacent to the ascending colon with surrounding inflammatory changes. It measures 2.5 cm. Epiploic appendagitis is not excluded. Appendix: No evidence of appendicitis. Intraperitoneal space: Unremarkable. No free air. No significant fluid collection. Vasculature: Atherosclerosis. Right common iliac artery stent. Status post repair of abdominal aneurysm with stent graft repair. [place] aneurysm measures up to 5.7 cm. 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 Internal iliac artery coiling. Lymph nodes: Unremarkable. No enlarged lymph nodes. Bladder: Unremarkable as visualized. Reproductive: Unremarkable as visualized. Bones/joints: Unremarkable. No acute fracture. Soft tissues: Unremarkable. IMPRESSION: 1. Peanut shaped fatty lobulation adjacent to the ascending colon with surrounding inflammatory changes. It measures 2.5 cm. Epiploic appendagitis is not excluded. 2. Normal appendix Thank you for allowing us to participate in the care of your patient. Dictated and Authenticated by: Magnolia Ferraro MD 01/23/2019 4:32 PM Eastern Time ([place] & [place]) HPI General Date/Time Provider Initiated Documentation: 01/23/19 14:29 . HPI Narrative: This is a 53-year-old male with past medical history of psoriasis on Stelara, mitral valve replacement on Coumadin, CABG, repaired AAA, high cholesterol, who presents today for evaluation of right upper and right mid quadrant abdominal pain. Patient states that the symptoms have been present for the last 2 days, it is constant in nature, throbbing in sensation. He denies any flank pain or urinary symptoms. He states that these symptoms are notably different than when he had his AAA pain. He denies any nausea or vomiting. He denies any diarrhea. Food does not change his feeling sensations. He still has his gallbladder and his appendix. He denies any other aggravating or relieving factors. He denies a fever or chills. He was seen by his primary care provider today who recommended further evaluation for gallbladder pathology. Patient has no other complaints at this time. He wants nothing for pain. No other modifying factors. Related Data Home Medications Medication Instructions Recorded Confirmed Baby Aspirin 81 mg PO DAILY tab-cap 11/15/12 01/23/19 Stelara 45 mg SQ every 12 weeks #1 syringe 10/28/15 01/23/19 acetaminophen 500 mg tablet 1,000 mg PO Q8H PRN PRN tab 07/14/18 01/23/19 potassium chloride 10 mEq 10 meq PO DAILY 07/14/18 01/23/19 tablet,extended release(part/cryst) atorvastatin 80 mg tablet 80 mg PO DAILY #90 tab 09/01/18 01/23/19 metoprolol succinate 50 mg 50 mg PO DAILY #90 tab 09/01/18 01/23/19 tablet,extended release 24 hr amoxicillin 500 mg tablet 2,000 mg PO ONCE #20 tab 11/24/18 01/23/19 warfarin 5 mg tablet 5 - 10 mg PO DAILY #180 tab 12/29/18 01/23/19 alprazolam [Xanax] 0.5 mg PO DAILY #3 tab 01/23/19 Previous Rx's Medication Instructions Recorded atorvastatin 80 mg tablet 80 mg PO DAILY #90 tab 09/01/18 metoprolol succinate 50 mg 50 mg PO DAILY #90 tab 09/01/18 tablet,extended release 24 hr amoxicillin 500 mg tablet 2,000 mg PO ONCE #20 tab 11/24/18 warfarin 5 mg tablet 5 - 10 mg PO DAILY #180 tab 12/29/18 alprazolam [Xanax] 0.5 mg PO DAILY #3 tab 01/23/19 Allergies Allergy/AdvReac Type Severity Reaction Status Date / Time adalimumab [From Humira] Allergy Intermediate hives Verified 01/23/19 14:22 General Stated Complaint: Abd Prob EZEQUIEL: 3 Review of Systems All systems reviewed & are unremarkable except as noted in HPI and below PFSH Social History Smoking/Tobacco Use Status: Never Alcohol Intake: never Substance use type: marijuana Details: little bit today. Do you feel safe in your relationship?: Yes Exam Narrative Exam Narrative: 1.Const: Well-nourished, Well-developed, appearing stated age 2.Eyes: PERRL, no conjunctival injection, and symmetrical lids. 3.ENT: Atraumatic external nose and ears. Moist MM. Neck: Symmetric, trachea midline, No thyromegaly. 4.CVS: +S1/S2, No murmurs or gallops. Peripheral pulses 2+ and equal in all extremities. Brisk capillary refill in all extremities. 5.RESP: Unlabored respiratory effort. Clear to auscultation bilaterally. No wheezes rales or rhonchi 6.GI: Soft, Nondistended, No hepatosplenomegaly. No guarding or rebound. No bounding abdominal mass. Right upper quadrant is mild to moderately tender on palpation however patient also has mild to moderate tenderness in the right mid area. Minimal tenderness in the right lower. No flank or CVA tenderness. No radiation to the genitals. Pulses intact. 7.MSK: Normocephalic/Atraumatic, Extremities w/o deformity or ttp No cyanosis or clubbing, Normal movement of all extremities 8.Skin: Warm, Dry. No rashes or lesions. 9.Neuro: science interpreter II-XII grossly intact. Sensation grossly intact, no focal neurologic deficits. 10.Psych: (AAO) x3. Appropriate mood and affect Course Vital Signs Vital signs: Vital Signs Temperature 36.5 C 01/23/19 14:19 Pulse 95 H 01/23/19 14:19 Respiratory Rate 20 01/23/19 14:19 Blood Pressure 143/102 H 01/23/19 14:19 Pulse Oximetry 95 01/23/19 14:19 Temperature 36.5 C 01/23/19 14:19 Temperature Source Temporal Artery Scan 01/23/19 14:19 Pulse 95 H 01/23/19 14:19 Respiratory Rate 20 01/23/19 14:19 Blood Pressure 143/102 H 01/23/19 14:19 Pulse Oximetry 95 01/23/19 14:19 Oxygen Delivery Method Room Air 01/23/19 14:19 Oxygen Flow Rate 0 01/23/19 14:19 Pain Level 5 01/23/19 14:19
[2019-01-23 14:45] LABS: Abs Immature Grans 0.03 k/cumm (0.0-0.09); Absolute Basophil Count 0.04 k/cumm (0.0-0.2); Absolute Eosinophil Count 0.43 k/cumm (0.0-0.7); Absolute Lymphocyte Count 1.69 k/cumm (1.2-3.4); Absolute Monocyte Count 0.54 k/cumm (0.11-0.7); Absolute Neutrophil Count 6.62 k/cumm (1.2-6.7); Basophils % 0.4; Eosinophils % 4.6; HCT 47.3 % (40.0-50.0); Immature Grans % 0.3; Lymphocytes % 18.1; Mean Corp. HGB Concentration 33.8 g/dL (32.0-36.0); Mean Corpuscular Hemoglobin 31.6 pg (27.0-33.0); Mean Corpuscular Volume 93.5 fL (80-95); Mean Platelet Volume 9.4 fL (8.0-11.0); Monocytes % 5.8; Neutrophils % 70.8; Platelet Count 278 x1000/uL (130-400); RBC 5.06 m/cumm (4.50-6.00); RBC Distribution Width 15.6 % (11.8-14.1); White Blood Cell Count 9.35 k/cumm (4.4-10.8)
[2019-01-23 14:52] LABS: ALT 63 U/L (16-63); AST 50 U/L (15-37); Albumin 4.5 g/dL (3.4-5.0); Alkaline Phosphatase 85 U/L (46-116); BUN 13 mg/dL (7-18); Bilirubin, Total 0.9 mg/dL (0.2-1.0); CREATININE 0.97 mg/dL (0.70-1.30); Calcium 9.6 mg/dL (8.5-10.1); Chloride 103 mmol/L (98-107); Glucose 116 mg/dL (74-106); Lipase 156 U/L (73-393); Potassium 4.4 mmol/L (3.5-5.1); Sodium 140 mmol/L (136-145); Total Protein 8.9 g/dL (6.4-8.2)
[2019-01-23 15:07] LABS: INR 2.6 (0.9-1.1); PTT Activated 35.3 sec (21.0-31.4); Prothrombin Time 25.3 sec (9.3-11.0)
[2019-01-23 15:29] LABS: Troponin I < 0.05 ng/Ml (<0.06)
--- NOTE | 2019-01-23 15:39 | DI.CT_ITS ---
EXAM: CT ABDOMEN PELVIS W CLINICAL HISTORY: RUQ and RMQ pain TECHNIQUE: Post IV contrast, 100 cc's of Omnipaque 350. No oral contrast. COMPARISON: CTA THORAX/ABDOMEN/PELVIS from 06/28/2017 FINDINGS: There is an area of inflammation in the fat adjacent to the ascending colon consistent with epiploic appendagitis. There is no evidence of appendicitis. The appendix projects low in the right pelvis. Th ere is no colonic or small bowel distention or wall thickening. The patient is status post repair of an abdominal aortic aneurysm as well as right iliac artery stenting. There is artifact created by leobardo gical clips near the right iliac artery. There is no evidence of occlusion. There is no evidence of l eak of the aneurysmal repair. The liver shows diffuse fatty infiltration. The gallbladder, spleen, pa ncreas, kidneys and adrenals are unremarkable. The bladder and prostate appear normal. There are mild degenerative changes in the spine. IMPRESSION: 1. Findings consistent with epiploic appendagitis adjacent to the ascending colon. 2. Status post abdominal aortic aneurysm repair and right iliac artery stenting. There is no emily dence of aortic leak or vascular occlusion. There is no evidence of bowel ischemia.
[2019-01-23 15:45] LABS: Bilirubin Negative (Negative); Blood Negative (Negative); Clarity Clear (Clear); Glucose Negative (Negative); Ketones Negative (Negative); Leukocyte Esterase Negative (Negative); Nitrite Negative (Negative)
[2019-01-23] MEDS: Omnipaque 350 MG/ML 100 ML BTL IJ (15:53)
--- NOTE | 2019-01-23 16:33 | DI.VRAD_ITS ---
PROCEDURE INFORMATION: Exam: CT Abdomen And Pelvis With Contrast Exam date and time: 01/23/2019 3:43 PM Age: 53 years old Clinical indication: Abdominal pain; Additional info: ? Appy per Dr tan TECHNIQUE: Imaging protocol: Computed tomography of the abdomen and pelvis with intravenous contrast. COMPARISON: CTA THORAX/ABDOMEN/PELVIS 06/28/2017 2:26 PM FINDINGS: Lungs: Subsegmental atelectasis versus infiltrate at the right pulmonary base. Heart: Mitral valve replacement. Liver: Fatty liver. Gallbladder and bile ducts: Normal. No calcified stones. No ductal dilation. Pancreas: Normal. No ductal dilation. Spleen: Normal. No splenomegaly. Adrenals: Normal. No mass. Kidneys and ureters: Subcentimeter right renal cysts. Stomach and bowel: Peanut shaped fatty lobulation adjacent to the ascending colon with surrounding inflammatory changes. It measures 2.5 cm. Epiploic appendagitis is not excluded. Appendix: No evidence of appendicitis. Intraperitoneal space: Unremarkable. No free air. No significant fluid collection. Vasculature: Atherosclerosis. Right common iliac artery stent. Status post repair of abdominal aneurysm with stent graft repair. [place] aneurysm measures up to 5.7 cm. 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 Internal iliac artery coiling. Lymph nodes: Unremarkable. No enlarged lymph nodes. Bladder: Unremarkable as visualized. Reproductive: Unremarkable as visualized. Bones/joints: Unremarkable. No acute fracture. Soft tissues: Unremarkable. IMPRESSION: 1. Peanut shaped fatty lobulation adjacent to the ascending colon with surrounding inflammatory changes. It measures 2.5 cm. Epiploic appendagitis is not excluded. 2. Normal appendix Dictated and Authenticated by: Magnolia Ferraro MD. Ordering:PAULINA Taylor MD
== END 2019-01-23 16:55 | disposition home or self-care (01) ==
PROVIDERS: Emergency Provider Student in an Organized Health Care Education/Training Program; PCP Emergency Medicine
DX: K63.89 Other specified diseases of intestine (principal); F41.9 Anxiety disorder, unspecified
CPT/HCPCS: 36415; 80053; 83690; 93005; 99285; 74177; 81003; 84484; 85025; 85610; 85730; 93010; 99284; J3490

== ENCOUNTER 2019-07-30 21:55 | Outpatient (REF) | payer OTHER, SELFPAY ==
[2019-07-30 22:15] LABS: D-Dimer 973 ng/mlFEU (<500)
== END 2019-07-30 22:15 ==
LOC: LBN 21:55
PROVIDERS: PCP Emergency Medicine; Visit Provider Nurse Practitioner Family
DX: M79.661 Pain in right lower leg (principal)
CPT/HCPCS: 85379

== ENCOUNTER 2019-08-01 14:29 | Outpatient (CLI) | payer OTHER, SELFPAY ==
--- NOTE | 2019-08-01 14:30 | DI.US_ITS ---
EXAM: US LOWER EXTREMITY VENOUS LT CLINICAL HISTORY: left calf swelling and pain,m79.89, ? dvt. TECHNIQUE: Ultrasound performed using standard protocol. COMPARISON: No exams were available for comparison FINDINGS: Duplex venous ultrasound was performed according to the usual protocol. The deep veins are freely com pressible throughout and there is normal flow augmentation with manual calf compression. 2D and Doppl er evaluation are unremarkable. IMPRESSION: No evidence of deep venous thrombosis of the left lower extremity DATA REPOSITORY:
== END 2019-08-01 14:49 ==
PROVIDERS: PCP Emergency Medicine; Visit Provider Nurse Practitioner Family
DX: M79.605 Pain in left leg (principal); R22.42 Localized swelling, mass and lump, left lower limb
CPT/HCPCS: 93971

== ENCOUNTER 2019-10-09 12:25 | Outpatient (REF) | payer OTHER, SELFPAY ==
[2019-10-09 21:31] LABS: Hemoglobin A1C 5.8 % (<5.7)
[2019-10-09 21:35] LABS: Calculated LDL 75 mg/dL (<100); Cholesterol 157 mg/dL (<200); HDL Cholesterol 30 mg/dL (40-60); Triglyceride 262 mg/dL (<150)
[2019-10-10 18:28] LABS: PSA, Screening 0.3 ng/mL (0.0-3.5)
== END 2019-10-09 12:45 ==
LOC: LBN 12:25
PROVIDERS: PCP Emergency Medicine; Visit Provider Emergency Medicine
DX: E78.5 Hyperlipidemia, unspecified (principal); R73.9 Hyperglycemia, unspecified; Z12.5 Encounter for screening for malignant neoplasm of prostate
CPT/HCPCS: 80061; 84153; 83036

== ENCOUNTER 2020-10-28 19:09 | Outpatient (REF) | payer OTHER, SELFPAY ==
[2020-10-28 20:41] LABS: Calculated LDL 92 mg/dL (<100); Cholesterol 162 mg/dL (<200); HDL Cholesterol 34 mg/dL (40-60); Triglyceride 182 mg/dL (<150)
== END 2020-10-28 19:10 | disposition home or self-care (01) ==
LOC: LBN 19:09
PROVIDERS: PCP Emergency Medicine; Referring Provider Emergency Medicine; Visit Provider Emergency Medicine
DX: E78.5 Hyperlipidemia, unspecified (principal); R73.9 Hyperglycemia, unspecified
CPT/HCPCS: 80061; 83036

== ENCOUNTER 2021-11-05 09:50 | Outpatient (CLI) | payer OTHER, SELFPAY ==
[2021-11-05 12:46] LABS: HGB 15.5 g/dL (13.5-17.5); MCH 30.9 pg (27.0-33.0); MCHC 33.7 % (32.0-36.0); MCV 92 fL (80-95); MPV 9.8 fL (8.0-11.0); Platelet Count 229 10^3/uL (130-400); RBC 5.02 10^6/uL (4.36-5.78); RDW 14.6 % (11.8-14.1); RDW-SD 49.6 fL; WBC 7.11 10^3/uL (4.4-10.8)
[2021-11-05 13:45] LABS: Hemoglobin A1C 5.8 % (<5.7)
[2021-11-05 14:05] LABS: ALT 79 U/L (16-63); AST 56 U/L (15-37); Albumin 4.4 g/dL (3.4-5.0); Alkaline Phosphatase 78 U/L (46-116); Anion Gap 9.6 mmol/L (3-11); BUN 17 mg/dL (7-18); Bilirubin, Total 0.7 mg/dL (0.2-1.0); CO2 27.4 mmol/L (21.0-32.0); Calcium 9.7 mg/dL (8.5-10.1); Chloride 103 mmol/L (98-107); Estimated GFR 89.44 (mL/min/1.73m2); Glucose 135 mg/dL (74-106); Potassium 3.9 mmol/L (3.5-5.1); Sodium 140 mmol/L (136-145); Total Protein 8.2 g/dL (6.4-8.2)
[2021-11-05 14:10] LABS: Calculated LDL 66 mg/dL (<100); Cholesterol 161 mg/dL (<200); HDL Cholesterol 36 mg/dL (40-60); Triglyceride 298 mg/dL (<150)
[2021-11-05 19:10] LABS: PSA, Screening 0.4 ng/mL (<=3.5)
[2021-11-06 09:15] LABS: HIV-1/2 Ag & Ab Screen Negative (Negative)
[2021-11-06 09:24] LABS: Hepatitis C Ab w Rflx HCV PCR Negative (Negative)
== END 2021-11-05 09:51 | disposition home or self-care (01) ==
LOC: LOS 09:50
PROVIDERS: Family Medicine; PCP Family Medicine; Referring Provider Family Medicine; Visit Provider Family Medicine
DX: E78.5 Hyperlipidemia, unspecified (principal); I25.10 Atherosclerotic heart disease of native coronary artery without angina pectoris; Z11.59 Encounter for screening for other viral diseases; Z12.5 Encounter for screening for malignant neoplasm of prostate; R53.83 Other fatigue; R10.9 Unspecified abdominal pain; Z11.4 Encounter for screening for human immunodeficiency virus [HIV]; R73.09 Other abnormal glucose
CPT/HCPCS: 36415; 80053; 80061; 84153; 85027; 86803; 87389; 83036

== ENCOUNTER 2022-07-19 13:56 | Outpatient (CLI) | payer OTHER, SELFPAY ==
--- NOTE | 2022-07-19 13:15 | DI.RAD_ITS ---
Exam(s) XR KNEE RT 3V AP,LAT,TRISTON EXAM: XR KNEE RT 3V AP,LAT,TRISTON CLINICAL HISTORY: Knee pain/swelling,m25.561. TECHNIQUE: 2D digital imaging was performed. COMPARISON: CR XR knee RT 3V AP,lat,triston from 05/31/2018 FINDINGS: 3 views No evidence of acute fracture. There is, however, significant joint effusion evident. There are mul tiple calcific densities seen above the superior pole the patella which are most probably related to the quadriceps tendon and were previously present but more numerous at this time. There are mild degenerative changes medial compartment. Vascular calcification is noted in the runof f vessels of the calf indicating atherosclerotic involvement. IMPRESSION: Findings as above plus joint effusion. Probably signifies internal derangement. Clinically indicate d follow-up MRI can be performed for added sensitivity and specificity. DATA REPOSITORY: RADIATION DOSE DELIVERED:
== END 2022-07-19 14:16 ==
LOC: DI 13:59
PROVIDERS: PCP Family Medicine; Visit Provider Nurse Practitioner Family
DX: M25.561 Pain in right knee (principal); M25.461 Effusion, right knee
CPT/HCPCS: 73562

== ENCOUNTER 2022-11-09 09:16 | Outpatient (CLI) | payer OTHER, SELFPAY ==
--- NOTE | 2022-11-09 09:15 | RT.EKG_ITS ---
APPROVED REPORT Exam: Resting ECG Reason for Exam: Annual Patient Location: O HR:74 bpm ECG Measurements Heart Rate 74 AXIS OR 169 P 55 QRSd 111 QRS -75 QT 405 T 91 QTc 450 Conclusion Sinus rhythm...normal P axis, V-rate 50- 99 Left anterior fascicular block...axis(240,-40), init forces inf Abnormal R-wave progression, late transition...QRS area<0 in V5/V6 LVH with secondary repolarization abnormality...multi-LVH criteria, abnrm ST-T
== END 2022-11-09 09:17 | disposition home or self-care (01) ==
LOC: DI.CM 09:18
PROVIDERS: PCP Family Medicine; Visit Provider Family Medicine
DX: I48.92 Unspecified atrial flutter (principal)
CPT/HCPCS: 93010

== ENCOUNTER 2023-01-20 08:55 | Emergency (ER) | payer OTHER, SELFPAY ==
[2023-01-20 08:58] VITALS: BP 152/100; PULSE 81; RESP 18; TEMP 36.7; O2SAT 94
--- NOTE | 2023-01-20 09:15 | RT.EKG_ITS ---
APPROVED REPORT Exam: Resting ECG Reason for Exam: abdominal pain Patient Location: E HR:76 bpm ECG Measurements Heart Rate 76 AXIS MI 164 P 64 QRSd 113 QRS -80 QT 410 T 88 QTc 461 Conclusion Sinus rhythm normal axis LVH no acute changes
[2023-01-20 09:27] LABS: Bilirubin Small (Negative); Blood Large (Negative); Clarity Sl Cloudy (Clear); Glucose Negative (Negative); Ketones Negative (Negative); Leukocyte Esterase Negative (Negative); Nitrite Negative (Negative); Specific Gravity >= 1.030 (1.005-1.025); pH 5.5 (5-8)
[2023-01-20 09:35] LABS: Bacteria Negative HPF (Negative); C & S Indicated? No; Casts 0-2 Hyaline LPF (Negative); Crystals Negative HPF (Negative); Epithelial Cells Rare HPF (Negative); Mucus Heavy (Negative); RBC >50 HPF (0-2); WBC 0-2 HPF (0-5)
--- NOTE | 2023-01-20 09:42 | W.ED.GENAD ---
Discharge Plan Disposition Patient Disposition: Home Discharge Details Clinical Impression: Supratherapeutic INR, Acute flank pain Primary Care Provider: Chuck Khan ED Provider: Luis Chapman Home Meds and New Rx's Prescriptions: New ondansetron 4 mg tablet,disintegrating 4 mg PO Q8H PRN (Reason: nausea and vomiting) Qty: 30 0RF No Action lorazepam 1 mg tablet 1 mg PO TID PRN (Reason: anxiety) Qty: 45 0RF BABY ASPIRIN 81 MG TAB.CHEW 81 mg PO DAILY Stelara 45 MG/0.5 ML syringe 45 mg SQ every 12 weeks Qty: 1 atorvastatin 80 mg tablet 80 mg PO DAILY Qty: 90 3RF amoxicillin 500 mg tablet 2,000 mg PO DAILY PRN (Reason: infection prophylaxis) Qty: 20 1RF Rx Instructions: 4 tabs 1 hour prior to procedure metoprolol succinate 50 mg tablet extended release 24 hr 25 mg PO DAILY warfarin 5 mg tablet 10 - 15 mg PO DAILY Protocol: Dose Management Condition: Tuesday Dose/Route: 10 mg Instruction: 2 x 5 mg tablets Condition: Tuesday Dose/Route: 15 mg Instruction: 3 x 5 mg tablets Condition: Tuesday Dose/Route: 10 mg Instruction: 2 x 5 mg tablets Condition: Tuesday Dose/Route: 15 mg Instruction: 3 x 5 mg tablets Condition: Dose/Route: 10 mg Instruction: 2 x 5 mg tablets Condition: Tuesday Dose/Route: 10 mg Instruction: 2 x 5 mg tablets Condition: Tuesday Dose/Route: 10 mg Instruction: 2 x 5 mg tablets Protocol Text: Adjustment Start Date: 01/20/23 INR Value: 4.4 INR Date: 01/20/23 Recheck Date: 01/27/23 Discharge Instructions Instructions: Kidney Stones (ED) Additional Instructions: Make sure to drink lots of water to continue to flush your urine. It seems that your pain was likely from a kidney stone that you have passed. Return to the emergency department if you have severe pain, persistent vomiting, difficulty urinating or fever. Take Zofran as needed. Your INR is elevated. Hold your dose of Coumadin tonight and resume tomorrow. Discharge Data Discharge Date/Time-TO BE ENTERED AT DEPARTURE: 01/20/23 12:27 Medical Decision Making Emergent evaluation of abdominal pain. initial differential includes renal colic, acute appendicitis, bowel obstruction. Patient reports pain is improving. Initial plan for lab work, fluid resuscitation and CT imaging. Labwork reviewed. CBC with mild leukocytosis, no anemia. Normal platelet count. INR supratherapeutic. Lactic acid slightly elevated. Mild change in LFTs without anything significant. He has no right upper quadrant tenderness so lower suspicion for gallbladder or liver pathology. I had a CT scan that demonstrated some inflammatory change around the right renal system but no signs of infection in urine. Urinalysis does demonstrate some hematuria. He is on Coumadin. There is a stone in the kidney, radiologist feels the appearance could be consistent with a passed renal stone. On reevaluation, the patient has no additional abdominal pain. He received no pain medication, so the symptoms have resolved spontaneously. I suspect that he had a passed kidney stone however strict return precautions advised. Follow-up with urology as needed. Will discharge with a prescription for Zofran since the patient is traveling and needs to stay well-hydrated. In regards to his supratherapeutic INR, advised to hold the dose of his medication tonight and then resume dosing as directed by PCP. Medical Records Medical records reviewed: Yes I reviewed the patient's medical records. Lab Data Lab results reviewed: Yes I reviewed the patient's lab results. ECG Data Attestation: I personally reviewed and interpreted this ECG (s) as follows: Prior ECG tracings: not available for review Interpretation: Sinus 76, normal axis, LVH, no acute ST segment changes HPI General Date/Time Provider Initiated Documentation: 01/20/23 09:28. Limitations to Documentation: no limitations. Information obtained by: patient and family (). HPI Narrative: 57-year-old gentleman with past medical history of CAD, hypertension, AAA status postrepair, mitral valve replacement presents for evaluation of abdominal pain. Symptoms started yesterday but have improved. Reports right-sided abdominal pain yesterday. Pain was constant, severe. Associated with mild nausea, no vomiting. Decreased appetite and oral intake. Decreased urine output. Denies any hematuria, dysuria. Denies any pain or swelling of the testicles. Pain is improved today, but now localized more to the right back. He reports not having a bowel movement for the last 4 days. Has taken stool softeners and senna without relief. Related Data Home Medications Medication Instructions Recorded Confirmed Baby Aspirin 81 mg PO DAILY 11/15/12 01/20/23 ustekinumab 45 mg/0.5 mL 45 mg SQ every 12 weeks #1 SYRG 10/28/15 01/20/23 subcutaneous syringe ([facility]) lorazepam 1 mg tablet 1 mg PO TID PRN anxiety #45 tabs 03/05/22 01/20/23 atorvastatin 80 mg tablet 80 mg PO DAILY #90 tabs 06/05/22 01/20/23 amoxicillin 500 mg tablet 2,000 mg (4 x 500 mg) PO DAILY PRN 11/18/22 01/20/23 infection prophylaxis #20 tabs metoprolol succinate 50 mg 25 mg PO DAILY 01/20/23 01/20/23 tablet,extended release 24 hr ondansetron 4 mg disintegrating 4 mg PO Q8H PRN nausea and 01/20/23 tablet vomiting #30 tabs warfarin 5 mg tablet 10 - 15 mg PO DAILY 01/20/23 01/20/23 Previous Rx's Medication Instructions Recorded lorazepam 1 mg tablet 1 mg PO TID PRN anxiety #45 tabs 03/05/22 atorvastatin 80 mg tablet 80 mg PO DAILY #90 tabs 06/05/22 amoxicillin 500 mg tablet 2,000 mg (4 x 500 mg) PO DAILY PRN 11/18/22 infection prophylaxis #20 tabs ondansetron 4 mg disintegrating 4 mg PO Q8H PRN nausea and 01/20/23 tablet vomiting #30 tabs Allergies Allergy/AdvReac Type Severity Reaction Status Date / Time adalimumab [From Humira] Allergy Intermediate hives Verified 01/20/23 09:02 General Stated Complaint: Abd Prob EZEQUIEL: 3 PFSH All Active Problems (Updated 01/20/23 @ 12:18 by Luis Chapman MD) Acute flank pain (Acute) Supratherapeutic INR (Acute) Right knee pain (Acute) Hypertriglyceridemia (Acute) Anxiety (Acute) Coronary arteriosclerosis (Acute) Hx of CABG and stent Essential hypertension (Acute 11/15/12) Family history of prostate cancer (Acute 11/02/16) Brother age 52 Hyperlipidemia (Acute) Psoriasis (Acute 02/16/10) Followed by dermatology at [place] S/P AAA repair (Acute 09/23/17) Chronic anticoagulation (Acute) History of mitral valve replacement with metallic valve (Acute) on caumadin Erectile dysfunction (Acute) Upper respiratory infection (Acute) Afib (Chronic) Atrial flutter (Acute) Surgical History Mitral valve replaced Repair of inguinal hernia (~2001) RIGHT Stent placement (~2002) X 2 Vasectomy (~2001) Social History Smoking/Tobacco Use Status: Current every day Smokeless tobacco user: chewing tobacco Smoking risk assessment performed?: Yes Alcohol Intake: never Drug use: Occasionally Substance use type: marijuana Caregiver/Support person: No Household members: spouse Housing: house Communication Needs: None Do you need help understanding health information?: Rarely Pets and animals: Yes Pets and animals: cat(s), dog(s) and horse(s) Sexually active: Yes Do you think of yourself as: straight/heterosexual Current gender identity: male What is your relationship status?: How often do you talk on the phone with friends or family?: three or more times per week How often do you get together with friends or relatives?: three or more times per week How often do you attend latter day or pentecostal services?: decline to answer Do you belong to any clubs or organized social groups?: no Panel score (0-1 are the most socially isolated patients): 2 What type of physical activity do you participate in: walking and other Details: Golf Duration: 30-45 minutes/day Frequency: daily Padmini/Methodist: No preference Special pdamini needs: No Do you feel safe at home: Yes Do you feel safe in your relationship?: Yes Exam Narrative Exam Narrative: Review of Systems: All systems reviewed & are unremarkable except as noted in HPI and below: CONSTITUTIONAL: Alert and oriented Well-developed, no acute distress HEENT: NCAT EYES: PERRL, no conjunctival injection NOSE nares patent MOUTH Moist MM CVS: RRR, No murmurs or gallops. Peripheral pulses 2+ and equal in all extremities Brisk capillary refill in all extremities. No peripheral edema RESP: Unlabored respiratory effort, Clear to auscultation bilaterally No wheezes rales or rhonchi GI: Soft, nondistended, right-sided tenderness with palpation, no CVA tenderness MSK: Extremities with full range of motion, no deformity or TTP SKIN: Warm, Dry. No rashes or lesions. NEURO: No focal neurologic deficits. 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 Sensation grossly intact Normal strength throughout PSYCH: Appropriate mood and affect Course Vital Signs Vital signs: Vital Signs Temperature 36.7 C 01/20/23 08:58 Pulse 81 01/20/23 08:58 Respiratory Rate 18 01/20/23 08:58 Blood Pressure 152/100 H 01/20/23 08:58 Pulse Oximetry 94 01/20/23 08:58 Temperature 36.7 C 01/20/23 08:58 Temperature Source Skin 01/20/23 08:58 Pulse 81 01/20/23 08:58 Respiratory Rate 18 01/20/23 08:58 Respiratory Effort Normal 01/20/23 09:06 Blood Pressure 152/100 H 01/20/23 08:58 Blood Pressure Position Sitting 01/20/23 08:58 Pulse Oximetry 94 01/20/23 08:58 Oxygen Delivery Method Room Air 01/20/23 08:58 Oxygen Flow Rate 0 01/20/23 08:58 Pain Level 5 01/20/23 08:58 Comment several stool softeners/laxatives 01/20/23 08:58 Lab/Test Results Lab/Test Results: Laboratory Tests Range/Units 01/20/23 09:11 Urine Color (Yellow) Dark Yellow Urine Clarity (Clear) Sl Cloudy Urine pH (5-8) 5.5 Ur Specific [place] (1.005-1.025) >= 1.030 H Urine Protein (Negative) mg/dL 100 H Urine Ketones (Negative) mg/dL Negative Urine Blood (Negative) Large H Urine Nitrite (Negative) Negative Urine Bilirubin (Negative) Small H Urine Urobilinogen (Up to 0.2) mg/dL 1.0 H Ur Leukocyte Esterase (Negative) Negative Urine RBC (0-2) HPF >50 H Urine WBC (0-5) HPF 0-2 Ur Epithelial Cells (Negative) HPF Rare Urine Crystals (Negative) HPF Negative Urine Bacteria (Negative) HPF Negative Urine Casts (Negative) LPF 0-2 Hyaline Urine Mucus (Negative) Heavy Ur Culture Indicated? No Urine Glucose (Negative) mg/dL Negative
[2023-01-20 09:49] LABS: Lactate 1.7 mmol/L (0.6-1.4)
[2023-01-20] MEDS: Ondansetron 4 MG/2 ML VIAL IVP (09:49)
[2023-01-20] MEDS: Normal Saline Flush 10 ML SYR IVP (09:49)
[2023-01-20] MEDS: Normal Saline 1,000 ML 1000 ML IV (09:51)
[2023-01-20 09:52] LABS: Abs Immature Grans 0.07 10^3/uL (0.0-0.06); Absolute Basophil Count 0.08 10^3/uL (0.0-0.2); Absolute Lymphocyte Count 1.34 10^3/uL (1.2-3.4); Absolute Monocyte Count 0.88 10^3/uL (0.1-0.8); Absolute Neutrophil Count 10.14 10^3/uL (1.2-6.7); Basophils % 0.6; Eosinophils % 0.8; HCT 49.8 % (40.0-50.0); HGB 17.3 g/dL (13.5-17.5); Immature Grans % 0.6; Lymphocytes % 10.6; MCH 31.1 pg (27.0-33.0); MCHC 34.7 % (32.0-36.0); MCV 90 fL (80-95); MPV 9.3 fL (8.0-11.0); Neutrophils % 80.4; Platelet Count 255 10^3/uL (130-400); RBC 5.56 10^6/uL (4.36-5.78); RDW 14.6 % (11.8-14.1); RDW-SD 48.5 fL; WBC 12.61 10^3/uL (4.4-10.8)
[2023-01-20 10:12] LABS: ALT 66 U/L (16-63); AST 49 U/L (15-37); Albumin 4.7 g/dL (3.4-5.0); Alkaline Phosphatase 80 U/L (46-116); Anion Gap 11.8 mmol/L (3-11); BUN 15 mg/dL (7-18); Bilirubin, Total 1.7 mg/dL (0.2-1.0); CO2 26.2 mmol/L (21.0-32.0); Chloride 98 mmol/L (98-107); Estimated GFR 88.88 (mL/min/1.73m2); Glucose 128 mg/dL (74-106); Lipase 35 U/L (16-77); Sodium 136 mmol/L (136-145); Total Protein 9.1 g/dL (6.4-8.2); Troponin I < 50 ng/L (<or=60)
[2023-01-20 10:35] LABS: INR 4.4 (0.9-1.1)
[2023-01-20] MEDS: Normal Saline - Diluent 50 ML VIAL IJ (11:20)
[2023-01-20] MEDS: Omnipaque 350 MG/ML 500 ML BTL-Imaging package 100 ML IJ (11:21)
--- NOTE | 2023-01-20 11:28 | DI.CT_ITS ---
Exam(s) CT ABDOMEN PELVIS W EXAM: CT ABDOMEN PELVIS W CLINICAL HISTORY: abdominal pain TECHNIQUE: Imaging Protocol: Axial computed tomography images with coronal and sagittal reformatted images were created and reviewed CONTRAST MATERIAL: Intravenous: Omnipaque 350 Contrast volume:100 mL Oral: No COMPARISON: CT CTA THORAX/ABDOMEN/PELVIS from 06/28/[address] ABDOMEN PELVIS W from 01/23/2019 FINDINGS: ABDOMEN: Lung Bases: Coronary artery calcification is present. There is a mitral valve replacement. There is a 7 mm nodule in the right lower lobe. This was present on the prior examination from 06/28/2017. T here is atelectasis in the right lower lobe. Liver: There is diffuse fatty infiltration of the liver. The liver measures 18 cm long. No measurab le mass. Portal, Superior Mesenteric, and Splenic Veins: Unremarkable. Gallbladder and Biliary Tract: Cholelithiasis. There is no biliary ductal dilatation. Pancreas: Normal density, no abnormal calcifications or inflammatory process. Spleen: Normal. Adrenals: No masses seen. Kidneys: Normal size, contour and axis. There is a 2 mm nonobstructing stone in the upper pole of the right kidney. There is a tiny hypodensity in the right kidney. It is too small for further charact erization. No follow-up is recommended. There is mild soft tissue stranding around the renal pelvis and proximal ureter. This may represent a recently passed stone or infection/inflammation. Abdominal Aorta: Atherosclerosis. There is an aorta iliac stent seen in the [place] abdominal aortic aneurysm. Bowel: There is diverticulosis of the colon but no evidence of acute diverticulitis. No suspicious b owel wall thickening or bowel obstruction. Appendix is unremarkable. Peritoneal Cavity: No ascites, collection or mesenteric inflammatory response. No free air. Lymph Nodes: Within normal limits. Bones: Within normal limits for the patient's age. Soft Tissues: Unremarkable. PELVIS: Bladder: Symmetric distention, no gross wall thickening. Reproductive Organs: There are distended vessels seen in the left scrotum suggesting a varicocele. Lymph Nodes: Within normal limits. Bones: Within normal limits for the patient's age. IMPRESSION: 1. Mild stranding seen around the right renal pelvis and proximal ureter. No calcified stone is seen within the urinary tract or urinary bladder. But this may represent a recently passed stone. Urina ry tract infection should also be considered. 2. Right nephrolithiasis. 3. No evidence of appendicitis. 4. Dilated vessels in the left scrotum consistent with varicocele. 5. Findings were discussed with Dr. Chapman at 12:11 p.m. on 01/20/2023. RADIATION DOSE DELIVERED: Total DLP DATA REPOSITORY: All CT scans at this facility are submitted to the National Radiology Data Registry (NRDR) Dose Index Registry (DIR) with the [employer] (ACR). RADIATION OPTIMIZATION: All CT scans at this facility use at least one of these dose optimization te chniques: automated exposure control; mA and/or kV adjustment per patient size (includes targeted exa ms where dose is matched to clinical indication); or iterative reconstruction.
[2023-01-20 12:27] VITALS: BP 121/81; PULSE 74; RESP 16; TEMP 36.9; O2SAT 96
== END 2023-01-20 12:27 | disposition home or self-care (01) ==
PROVIDERS: Emergency Provider Emergency Medicine; PCP Family Medicine
DX: R10.9 Unspecified abdominal pain (principal); R11.0 Nausea; D72.829 Elevated white blood cell count, unspecified; R91.1 Solitary pulmonary nodule; I25.10 Atherosclerotic heart disease of native coronary artery without angina pectoris; E11.9 Type 2 diabetes mellitus without complications; Z79.01 Long term (current) use of anticoagulants; Z79.82 Long term (current) use of aspirin
CPT/HCPCS: 80053; 83690; 93005; 96361; 96374; 99285; 74177; 81003; 81015; 83605; 83735; 84484; 85025; 85610; 93010; 99284; J2405

== ENCOUNTER 2023-10-02 15:45 | Observation (INO) | payer BC, SELFPAY ==
[2023-10-02] VITALS (19 sets, daily range): BP systolic 104–137; BP diastolic 55–84; PULSE 85–115; RESP 11–23; TEMP 36.6–37.2; O2SAT 93–100
--- NOTE | 2023-10-02 15:45 | RT.EKG_ITS ---
APPROVED REPORT Exam: Resting ECG Reason for Exam: fever, MV replacement Patient Location: E HR:112 bpm ECG Measurements Heart Rate 112 AXIS CA 160 P 68 QRSd 109 QRS -81 QT 336 T 91 QTc 459 Conclusion Sinus tachycardia...rate> 99 Left anterior fascicular block...axis(240,-40), init forces inf LVH with secondary repolarization abnormality...multi-LVH criteria, abnrm ST-T
--- NOTE | 2023-10-02 16:00 | DI.RAD_ITS ---
Exam(s) XR CHEST 2V PA LATERAL EXAM: XR CHEST 2V PA LATERAL CLINICAL HISTORY: fever unknown origin TECHNIQUE: 2D digital imaging was performed. Two views. COMPARISON: CR XR CHEST 2V PA LATERAL from 07/19/2018 FINDINGS: Lateral view limited by patient arm positioning. HEART: Normal size. Valve prosthesis. Aorta: Not dilated. PULMONARY VASCULATURE: Normal. MEDIASTINUM: Unremarkable. LUNGS: Clear. PLEURAL SPACE: No pleural effusion or pneumothorax. BONE:Unremarkable for age. Sternal wires. SOFT TISSUES: Unremarkable. IMPRESSION: No acute abnormality. DATA REPOSITORY: RADIATION DOSE DELIVERED:
--- NOTE | 2023-10-02 16:09 | ED.GENADUL_ITS ---
Discharge Plan Disposition Patient Disposition: Admit to [facility] Discharge Details Clinical Impression: Fever and chills Admit Date/Time: 10/02/23 18:34 Primary Care Provider: Chuck Khan ED Provider: Loretta Verde Home Meds and New Rx's Prescriptions: No Action lorazepam 1 mg tablet 1 mg PO TID PRN (Reason: anxiety) Qty: 45 0RF Skyrizi 150 mg/mL pen injector 150 mg subcut Q12W Qty: 1 3RF BABY ASPIRIN 81 MG TAB.CHEW 81 mg PO DAILY amoxicillin 500 mg tablet 2,000 mg PO DAILY PRN (Reason: infection prophylaxis) Qty: 20 1RF Rx Instructions: 4 tabs 1 hour prior to procedure atorvastatin 80 mg tablet 80 mg PO DAILY Qty: 90 3RF warfarin 5 mg tablet 10 - 15 mg PO DAILY Qty: 270 3RF Protocol: Dose Management Condition: Tuesday Dose/Route: 10 mg Instruction: 2 x 5 mg tablets Condition: Tuesday Dose/Route: 15 mg Instruction: 3 x 5 mg tablets Condition: Tuesday Dose/Route: 10 mg Instruction: 2 x 5 mg tablets Condition: Tuesday Dose/Route: 15 mg Instruction: 3 x 5 mg tablets Condition: Dose/Route: 10 mg Instruction: 2 x 5 mg tablets Condition: Tuesday Dose/Route: 15 mg Instruction: 3 x 5 mg tablets Condition: Tuesday Dose/Route: 10 mg Instruction: 2 x 5 mg tablets Protocol Text: Adjustment Start Date: Tuesday09/26/23 INR Value: 2.8 INR Date: 09/26/23 Recheck Date: 10/03/23 Patient Comments: m-w-f 15mg all other days are 10 metoprolol succinate 50 mg tablet extended release 24 hr 25 mg PO DAILY ondansetron 4 mg tablet,disintegrating 4 mg PO Q8H PRN (Reason: nausea and vomiting) Qty: 30 0RF HPI General Date/Time Provider Initiated Documentation: 10/02/23 15:48 . HPI Narrative: Jese is a 58-year-old male who presents to the emergency department today for evaluation of fever/shaking chills with goosebumps, decreased appetite, and feeling of general malaise x 3 days. He does have a history of mitral valve replacement, takes warfarin for anticoagulation. He reports on and off headache associated with fever. Has been taking aspirin for fever control, says that temperature comes back up after it wears off. He denies vision changes, con gestion, sore throat, cough, chest pain, shortness of breath, vomiting, abdominal pain, change in urine output, diarrhea or change in bowel function, rashes. Denies history of immunocompromise, diabetes, other heart problems, lung problems, history of antibiotic resistant infections, history of infective endocarditis. He does smoke marijuana. No regular alcohol use. He does spend time outdoors, has had tick bites this summer. Physical exam reassuring. Patient is alert and oriented, no acute distress. He does appear slightly anxious, attributes this to claustrophobia. No Janeway lesions or Osler's nodes noted. Easy work of breathing, lung sounds clear bilaterally. Tachycardia noted, normal heart sounds. No obvious rashes noted. He does have 2 dime-sized lesions on his left side that he reports are due to insect bites, no surrounding erythema or drainage from lesions. DDx includes but is not limited to: Infective endocarditis, viral illness such as COVID-19 or flu, tickborne illness, occult infection such as pneumonia or UTI I independently interpreted the following tests: EKG reassuring, sinus tachycardia rate 112. Left anterior fascicular block unchanged from previous. No new heart block or DE prolongation. Mild hyponatremia noted with sodium 131. LFTs elevated above baseline, total bili 1.53, AST 109, ALT 113. CRP is elevated at 9.5. CBC, sed rate reassuring. INR 3.1, within therapeutic range. COVID/flu/RSV negative. Chest x-ray reassuring, no infiltrates or other acute pathology noted. Tick panel pending. Fever concerning for tickborne illness versus infective endocarditis. Discussed case with Dr. Elder, hospitalist. He is agreeable to admission for observation to see if blood cultures grow out anything. Recommend starting doxycycline at this time to cover Anaplasma and Lyme disease, does not advise any other additional coverage for IE. Patient is agreeable with plan of care. Related Data Home Medications ?Medication ?Instructions ?Recorded ?Confirmed Baby Aspirin 81 mg PO DAILY 11/15/12 10/02/23 amoxicillin 500 mg tablet 2,000 mg (4 x 500 mg) PO DAILY PRN 11/18/22 10/02/23 infection prophylaxis #20 tabs metoprolol succinate 50 mg 25 mg PO DAILY 01/20/23 10/02/23 tablet,extended release 24 hr ondansetron 4 mg disintegrating 4 mg PO Q8H PRN nausea and 01/20/23 10/02/23 tablet vomiting #30 tabs lorazepam 1 mg tablet 1 mg PO TID PRN anxiety #45 tabs 02/10/23 10/02/23 atorvastatin 80 mg tablet 80 mg PO DAILY #90 tabs 05/19/23 10/02/23 warfarin 5 mg tablet 10 - 15 mg PO DAILY #270 tabs 06/04/23 10/02/23 risankizumab-rzaa 150 mg/mL 150 mg subcut Q12W psoriasis #1 mL 06/07/23 10/02/23 subcutaneous pen injector (Skyrizi) Previous Rx's ?Medication ?Instructions ?Recorded amoxicillin 500 mg tablet 2,000 mg (4 x 500 mg) PO DAILY PRN 11/18/22 infection prophylaxis #20 tabs ondansetron 4 mg disintegrating 4 mg PO Q8H PRN nausea and 01/20/23 tablet vomiting #30 tabs lorazepam 1 mg tablet 1 mg PO TID PRN anxiety #45 tabs 02/10/23 atorvastatin 80 mg tablet 80 mg PO DAILY #90 tabs 05/19/23 warfarin 5 mg tablet 10 - 15 mg PO DAILY #270 tabs 06/04/23 risankizumab-rzaa 150 mg/mL 150 mg subcut Q12W psoriasis #1 mL 06/07/23 subcutaneous pen injector (Skyrizi) Allergies Allergy/AdvReac Type Severity Reaction Status Date / Time adalimumab (From Humira) Allergy Intermediate hives Verified 10/02/23 17:06 General Stated Complaint: GenMedical EZEQUIEL: 3 Review of Systems Narrative: see HPI Exam Const General: cooperative, comfortable, no acute distress and anxious Nutritional Appearance: average body habitus Resp Effort & Inspection: normal respiratory effort and able to speak in complete sentences Auscultation: clear to auscultation bilaterally Cardio Rate: tachycardic Rhythm: regular rhythm Skin Lesions: lesion noted (2 dime-sized lesions to L flank with central black spot) Rashes: no rashes Course Vital Signs Vital signs: Vital Signs Temperature 37.2 C 10/02/23 15:49 Pulse 115 H 10/02/23 15:49 Blood Pressure 137/84 10/02/23 15:49 Pulse Oximetry 93 10/02/23 15:49 Temperature 37.2 C 10/02/23 15:49 Temperature Source Tympanic 10/02/23 15:49 Pulse 115 H 10/02/23 15:49 Blood Pressure 137/84 10/02/23 15:49 Blood Pressure Position Sitting 10/02/23 15:49 Pulse Oximetry 93 10/02/23 15:49 Oxygen Delivery Method Room Air 10/02/23 15:49 Oxygen Flow Rate 0 10/02/23 15:49 Lab/Test Results Lab/Test Results: 10/02/23 15:56 Blood Blood Culture - Pending 10/02/23 15:56 Blood Blood Culture - Pending Medical Decision Making Quality:SDOH Health Related Social Needs: No Data to Display PFSH All Active Problems (Updated 10/02/23 @ 19:32 by Loretta Rodríguez) Fever and chills (Acute) Right knee pain (Acute) Hypertriglyceridemia (Acute) Anxiety (Acute) Coronary arteriosclerosis (Acute) Hx of CABG and stent Essential hypertension (Acute 11/15/12) Family history of prostate cancer (Acute 11/02/16) Brother age 52 Hyperlipidemia (Acute) Psoriasis (Acute 02/16/10) Followed by dermatology at [facility] S/P AAA repair (Acute 09/23/17) Chronic anticoagulation (Acute) History of mitral valve replacement with metallic valve (Acute) on caumadin Erectile dysfunction (Acute) Upper respiratory infection (Acute) Afib (Chronic) Atrial flutter (Acute) Surgical History Mitral valve replaced Repair of inguinal hernia (~2001) RIGHT Stent placement (~2002) X 2 Vasectomy (~2001) Social History Smoking/Tobacco Use Status: Current every day Smokeless tobacco user: chewing tobacco Smoking risk assessment performed?: Yes Alcohol Intake: never Drug use: Occasionally Substance use type: marijuana Caregiver/Support person: No Household members: spouse Housing: house Communication Needs: None Do you need help understanding health information?: Rarely Pets and animals: Yes Pets and animals: cat(s), dog(s) and horse(s) Sexually active: Yes Do you think of yourself as: straight/heterosexual Current gender identity: male What is your relationship status?: How often do you talk on the phone with friends or family?: three or more times per week How often do you get together with friends or relatives?: three or more times per week How often do you attend bahai or latter day services?: decline to answer Do you belong to any clubs or organized social groups?: no Panel score (0-1 are the most socially isolated patients): 2 What type of physical activity do you participate in: walking and other Details: Golf Duration: 30-45 minutes/day Frequency: daily Padmini/Episcopal: No preference Special padmini needs: No Do you feel safe at home: Yes Do you feel safe in your relationship?: Yes
[2023-10-02] MEDS: Normal Saline 1,000 ML 1000 ML IV (16:44)
[2023-10-02] MEDS: Acetaminophen 325 MG TAB 650 MG PO (16:50)
[2023-10-02 16:54] LABS: Abs Immature Grans 0.06 10^3/uL (0.0-0.06); Absolute Basophil Count 0.02 10^3/uL (0.0-0.2); Absolute Monocyte Count 0.33 10^3/uL (0.1-0.8); Absolute Neutrophil Count 5.06 10^3/uL (1.2-6.7); Basophils % 0.3 %; HCT 46.7 % (40.0-50.0); HGB 16.3 g/dL (13.5-17.5); Lymphocytes % 5.2 %; MCH 31.8 pg (27.0-33.0); MCHC 34.9 % (32.0-36.0); MCV 91 fL (80-95); MPV 9.4 fL (8.0-11.0); Monocytes % 5.7 %; Neutrophils % 87.8 %; Platelet Count 127 10^3/uL (130-400); RBC 5.13 10^6/uL (4.36-5.78); RDW 14.6 % (11.8-14.1); RDW-SD 49.1 fL; WBC 5.77 10^3/uL (4.4-10.8)
[2023-10-02 16:55] LABS: ESR 20 mm/hr (0-20)
[2023-10-02 17:03] LABS: INR 3.1 (0.9-1.1); Prothrombin Time 28.2 sec (9.1-11.1)
[2023-10-02 17:05] LABS: COVID-19 PCR Negative (Negative); Influenza A PCR Negative (Negative); Influenza B PCR Negative (Negative); RSV PCR Negative (Negative)
[2023-10-02 17:06] LABS: Source Nasopharynx
[2023-10-02 17:10] LABS: ALT 113 U/L (16-63); AST 109 U/L (15-37); Albumin 4.3 g/dL (3.4-5.0); Alkaline Phosphatase 63 U/L (46-116); Anion Gap 9.8 mmol/L (3-11); BUN 15 mg/dL (7-18); Bilirubin, Total 1.53 mg/dL (0.2-1.0); CO2 25.2 mmol/L (21.0-32.0); CREATININE 1.1 mg/dL (0.70-1.30); Calcium 9.7 mg/dL (8.5-10.1); Chloride 96 mmol/L (98-107); Estimated GFR 78.79 (mL/min/1.73m2); Glucose 135 mg/dL (74-106); Magnesium 1.8 mg/dL (1.8-2.4); Potassium 4.2 mmol/L (3.5-5.1); Sodium 131 mmol/L (136-145); Total Protein 8.6 g/dL (6.4-8.2)
[2023-10-02 17:21] LABS: Bilirubin Negative (Negative); Blood Trace-lysed (Negative); Clarity Clear (Clear); Glucose Negative (Negative); Ketones Negative (Negative); Leukocyte Esterase Negative (Negative); Nitrite Negative (Negative); Specific Gravity 1.025 (1.005-1.025); Urobilinogen >=8.0 mg/dL (Up to 0.2)
[2023-10-02 17:27] LABS: Epithelial Cells Negative HPF (Negative); RBC 0-2 HPF (0-2); WBC Negative HPF (0-5)
[2023-10-02 17:28] LABS: Bacteria Few HPF (Negative); C & S Indicated? No; Casts Negative LPF (Negative); Crystals Negative HPF (Negative); Mucus Trace (Negative)
--- NOTE | 2023-10-02 17:51 | DI.VRAD_ITS ---
PROCEDURE INFORMATION: Exam: XR Chest Exam date and time: 10/02/2023 4:31 PM Age: 58 years old Clinical indication: Patient HX: Fever unknown origin TECHNIQUE: Imaging protocol: Radiologic exam of the chest. Views: 2 views. COMPARISON: CR XR CHEST 2V PA LATERAL 07/19/2018 8:58 AM FINDINGS: Lungs: Minimal left lower lobe atelectasis or fibrosis. Pleural spaces: Unremarkable. No pleural effusion. No pneumothorax. Heart/Mediastinum: Status post aortic valve replacement. Bones/joints: Status post median sternotomy. IMPRESSION: No acute abnormality evident in the chest. Dictated and Authenticated by: Stacy Hoffman MD. Ordering:JACQUE Burgos MD
[2023-10-02] MEDS: Doxycycline Hyclate 100 MG CAP PO (18:25)
[2023-10-02 19:17] LABS: Procalcitonin 0.8 ng/mL
[2023-10-02] MEDS: Melatonin 3 MG TAB 9 MG PO (20:35)
[2023-10-02] MEDS: Warfarin 5 MG TAB PO (20:35)
[2023-10-02] MEDS: Aspirin E.C. 81 MG TABEC PO (20:35)
[2023-10-02] MEDS: LORazepam 1 MG TAB PO (20:36)
[2023-10-02] MEDS: Metoprolol CR 50 MG TABCR 25 MG PO (20:36)
[2023-10-02] MEDS: Normal Saline Flush 10 ML SYR IVP (20:37)
--- NOTE | 2023-10-02 20:48 | W.PM.HP.N ---
Date of service: 10/02/23 Time of Service: 20:48 Assessment and Plan Assessment and plan (1) Fever and chills: Status: Acute Assessment and plan: await blood cultures and tick panel; treat w/ doxycycline empirically; proceed w/ echo given his mechanical mitral valve. I would not broaden antibiotic coverage at this time (2) History of mitral valve replacement with metallic valve: Status: Acute Assessment and plan: await blood cultures and check echocardiogram in the morning but he has no evidence for acute or subacute endocarditis therefore I would not put him on broad spectrum antibiotics yet. I would treat empirically for anaplasmosis. (3) Lymphocytosis: Status: Acute Assessment and plan: monitor and treat empirically for anaplasmosis (4) Elevated transaminase level: Status: Acute Assessment and plan: repeat CMP, check hepatitis panel, check hepatic US; may be related to tick borne illness, awaiting tick panel and treating w/ doxycycline; note patient has fatty liver changes noted on prior CT abdomen and pelvis from 01/20/23 and his transaminases have been mildly elevated in the past but not as high as today. (5) Afib: Status: Chronic Assessment and plan: remains in NSR so presumably his hx of afib is paroxysmal or may have been related to his MVR. continue Toprol XL for rate control and continue warfarin w/ goal of INR 3 to to 3.9 Qualifiers: Atrial fibrillation type: longstanding persistent Qualified Code(s): I48.11 - Longstanding persistent atrial fibrillation History of Present Illness History of Present Illness Chief Complaint: fevers, chills Narrative: 58 yr old male w/ PMH of CAD, mi, s/p CABG and stents, AAA repair and mechanical MV replacment chronically on warfarin who presents w/ fevers, chills, rigors and sweats along w/ diffuse muscle aches, nausea but no abdominal pain, vomiting or diarrhea. He has not been around anyone who has been ill. He denies any cough or sputum production, no neck pains or back pains, no dysuria. 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 He has had multiple tick bites over this summer w/ the most recent ones being 2 to 3 weeks ago on his thighs. Earlier this summer about 3 months ago he had one on his back that had been embedded for couple days before his got it out. Evaluation in the ED was unremarkable for any fever (37.2 C) and his CXR and his UA. However his CBC although showed no leukocytosis nor leukopenia did have an absolute mild lymphocytopenia (0.3) and thrombocytopenia of 127,00. His CMP demonstrated significantly elevated transaminases of AST 109, ALT 63, w/ normal alkaline phosphatase but elevated total bilirubin 1.53 (note he has hx of fatty liver changes seen on his CT abdomen and pelvis from Jan 2023 and prior LFT were only mildly elevated at 49, and 66). His sodium tonight is mildly low at 131. CRP is elevated at 9.50 and procalcitonin is 0.8. Blood cultures were obtained and the ED provider called me to admit him to r/o endocarditis vs tick borne illness vs other infection. He was treated w/ iv fluids and begun on doxycycline. The ED provider was going to give broad spectrum antibiotics for SBE however, I advised her that since he was afebrile and did not have a leukocytosis w/ any bands or neutrophilia, I think in setting of multiple tick bites, rising transaminases, mild hyponatremia and lymphocytopenia, this is likely anaplasmosis and giving him doxycycline for now would be sufficient but admitting while waiting for blood cultures and getting an echo in light of his prosthetic MV is a good idea. Review of Systems All systems reviewed & are unremarkable except as noted in HPI and below PFSH All Active Problems Elevated transaminase level (Acute) Lymphocytosis (Acute) Fever and chills (Acute) Right knee pain (Acute) Hypertriglyceridemia (Acute) Anxiety (Acute) Coronary arteriosclerosis (Acute) Hx of CABG and stent Essential hypertension (Acute 11/15/12) Family history of prostate cancer (Acute 11/02/16) Brother age 52 Hyperlipidemia (Acute) Psoriasis (Acute 02/16/10) Followed by dermatology at [place] S/P AAA repair (Acute 09/23/17) Chronic anticoagulation (Acute) History of mitral valve replacement with metallic valve (Acute) on caumadin Erectile dysfunction (Acute) Upper respiratory infection (Acute) Afib (Chronic) Atrial flutter (Acute) Surgical History Mitral valve replaced Vasectomy (~2001) Stent placement (~2002) X 2 Repair of inguinal hernia (~2001) RIGHT Social History Smoking/Tobacco Use Status: Current every day Smokeless tobacco user: chewing tobacco Smoking risk assessment performed?: Yes Alcohol Intake: never Drug use: Occasionally Substance use type: marijuana Caregiver/Support person: No Household members: spouse Housing: house Communication Needs: None Do you need help understanding health information?: Rarely Pets and animals: Yes Pets and animals: cat(s), dog(s) and horse(s) Sexually active: Yes Do you think of yourself as: straight/heterosexual Current gender identity: male What is your relationship status?: How often do you talk on the phone with friends or family?: three or more times per week How often do you get together with friends or relatives?: three or more times per week How often do you attend nondenominational or samaritan services?: decline to answer Do you belong to any clubs or organized social groups?: no Panel score (0-1 are the most socially isolated patients): 2 What type of physical activity do you participate in: walking and other Details: Golf Duration: 30-45 minutes/day Frequency: daily Padmini/Jehovah'S Witness: No preference Special padmini needs: No Do you feel safe at home: Yes Do you feel safe in your relationship?: Yes Meds Allergies and Home Medications Allergies Allergy/AdvReac Type Severity Reaction Status Date / Time adalimumab (From Humira) Allergy Intermediate hives Verified 10/02/23 17:06 Home Medications ?Medication ?Instructions ?Recorded ?Confirmed ?Type Baby Aspirin 81 mg PO DAILY 11/15/12 10/02/23 History amoxicillin 500 mg tablet 2,000 mg (4 x 500 mg) PO DAILY PRN 11/18/22 10/02/23 Rx infection prophylaxis #20 tabs metoprolol succinate 50 mg 25 mg PO DAILY 01/20/23 10/02/23 History tablet,extended release 24 hr ondansetron 4 mg disintegrating 4 mg PO Q8H PRN nausea and 01/20/23 10/02/23 Rx tablet vomiting #30 tabs lorazepam 1 mg tablet 1 mg PO TID PRN anxiety #45 tabs 02/10/23 10/02/23 Rx atorvastatin 80 mg tablet 80 mg PO DAILY #90 tabs 04/11/24 08/25/24 Rx warfarin 5 mg tablet 10 - 15 mg PO DAILY #270 tabs 06/04/23 10/02/23 Rx risankizumab-rzaa 150 mg/mL 150 mg subcut Q12W psoriasis #1 mL 06/07/23 10/02/23 Rx subcutaneous pen injector (Skyrizi) Exam Narrative Exam Narrative: cooperative, pleasant middle aged white male who is bald, he is alert/oriented x 3 HEENT: sclera white, no jaundice, conjunctivae noninjected, no splinter hemorrhages. I could not find a working ophtalmoscope so I could not look into his eyes to look for Trevino spots Oropharynx noninjected no exudates Neck supple; no meningismus, no adenopathy, normal carotid pulses, no JVD Lungs: clear Heart: regular w/ harsh systolic click over apex but heard throughout the precordium; has mechanical sound of prosthetic valve Chest wall w/ healed median sternotomy scar Abdomen: scar over midline consistent w/ prior laparotomy and AAA repair; normal bowell sounds, no organomegaly nor any tenderness Lower extremities: feet and toes in good repair, no splinter hemorrhages Upper extremities: left index finger w/ questionable splinter hemorrhag, no Osler nodes or Janeway lesions Results Labs 10/02/23 16:44 10/02/23 16:44 Labs: Laboratory Results - last 24 hr 10/02/23 10/02/23 10/02/23 16:16 16:44 17:15 WBC 5.77 RBC 5.13 Hgb 16.3 Hct 46.7 MCV 91 MCH 31.8 MCHC 34.9 RDW 14.6 H Plt Count 127 L MPV 9.4 Immature Gran % 1.0 Neutrophils % 87.8 Lymphocytes % 5.2 Monocytes % 5.7 Eosinophils % 0.0 Basophils % 0.3 Nucleated RBC % 0.0 Absolute Neutrophils 5.06 Absolute Lymphocytes 0.30 L Absolute Monocytes 0.33 Absolute Eosinophils 0.00 Absolute Basophils 0.02 ESR 20 PT 28.2 H INR 3.1 H Sodium 131 L Potassium 4.2 Chloride 96 L Carbon Dioxide 25.2 Anion Gap 9.8 BUN 15 Creatinine 1.1 Est GFR (CKD-EPI 2020) 78.79 Glucose 135 H Calcium 9.7 Magnesium 1.8 Total Bilirubin 1.53 H AST 109 H ALT 113 H Alkaline Phosphatase 63 C-Reactive Protein 9.50 H Total Protein 8.6 H Albumin 4.3 Procalcitonin Urine Color Dark Yellow Urine Clarity Clear Urine pH 6.0 Ur Specific [place] 1.025 Urine Protein 30 H Urine Ketones Negative Urine Blood Trace-lysed H Urine Nitrite Negative Urine Bilirubin Negative Urine Urobilinogen >=8.0 H Ur Leukocyte Esterase Negative Urine RBC 0-2 Urine WBC Negative Ur Epithelial Cells Negative Urine Crystals Negative Urine Bacteria Few Urine Casts Negative Urine Mucus Trace Ur Culture Indicated? No Urine Glucose Negative COVID-19 Source Nasopharynx SARS-CoV-2 (PCR) Negative Influenza Type A (PCR) Negative Influenza Type B (PCR) Negative RSV (PCR) Negative 10/02/23 18:30 WBC RBC Hgb Hct MCV MCH MCHC RDW Plt Count MPV Immature Gran % Neutrophils % Lymphocytes % Monocytes % Eosinophils % Basophils % Nucleated RBC % Absolute Neutrophils Absolute Lymphocytes Absolute Monocytes Absolute Eosinophils Absolute Basophils ESR PT INR Sodium Potassium Chloride Carbon Dioxide Anion Gap BUN Creatinine Est GFR (CKD-EPI 2020) Glucose Calcium Magnesium Total Bilirubin AST ALT Alkaline Phosphatase C-Reactive Protein Total Protein Albumin Procalcitonin 0.8 Urine Color Urine Clarity Urine pH Ur Specific [place] Urine Protein Urine Ketones Urine Blood Urine Nitrite Urine Bilirubin Urine Urobilinogen Ur Leukocyte Esterase Urine RBC Urine WBC Ur Epithelial Cells Urine Crystals Urine Bacteria Urine Casts Urine Mucus Ur Culture Indicated? Urine Glucose COVID-19 Source SARS-CoV-2 (PCR) Influenza Type A (PCR) Influenza Type B (PCR) RSV (PCR) Last Vital Signs Temp 37.2 C 10/02/23 17:08 Pulse 96 H 10/02/23 19:48 Resp 23 10/02/23 19:20 BP 104/55 L 10/02/23 19:48 Pulse Ox 93 10/02/23 19:48 Time Spent Time spent with Patient: 55-74 minutes Time was spent: preparing to see the patient(eg.review tests), ordering medications,tests, procedures, referring, communicating with other health healthcare risk control consultant (discussed w/ Loretta Rodríguez, P.A.), indepentently interpreting results, counseling the patient and care coordination
--- NOTE | 2023-10-02 21:12 | W.PC.ACHO ---
Registration Status: Primary Language: Preferred Language: ED Information & Data Chief Complaint GenMedical 10/02/23 17:08 Chief Complaint GenMedical 10/02/23 16:14 Triage Note Feels febrile, loss of 10/02/23 15:49 apatite, feels ill. Getting worse for 3 days. Difficulty sleeping. (Last Reviewed 11/09/22 @ 12:23 by Chuck Khan MD) Mitral valve replaced Vasectomy (~2001) Stent placement (~2002) Repair of inguinal hernia (~2001) Most Recent Vital Signs Temperature 37.2 C 10/02/23 17:08 Temperature Source Tympanic 10/02/23 17:08 Pulse 96 H 10/02/23 19:48 Pulse 101 H 10/02/23 19:20 Respiratory Rate 23 10/02/23 19:20 Respiratory Effort Normal, Non-Labored 10/02/23 17:08 Respiratory Depth Normal 10/02/23 17:08 Respiratory Pattern Normal 10/02/23 17:08 Blood Pressure 104/55 L 10/02/23 19:48 Blood Pressure Mean 72 10/02/23 19:44 Blood Pressure Position Sitting 10/02/23 17:08 Pulse Oximetry 93 10/02/23 19:48 Oxygen Delivery Method Room Air 10/02/23 17:08 Oxygen Flow Rate 0 10/02/23 17:08 Pain Level 5 10/02/23 17:08 Comment has a headache currently 10/02/23 17:08 Allergies adalimumab (From Humira) Allergy (Intermediate, Verified 10/02/23 17:06) hives Precautions Isolation Standard precaution 10/02/23 17:08 Active Medications Generic Name Dose Route Start Last Admin Trade Name Seanq PRN Reason Stop Dose Admin Aspirin 81 mg 10/02/23 20:00 10/02/23 20:35 Aspirin E.C. 81 Mg Tabec PO 81 mg DAILY@1999 [facility] Administration Lorazepam 1 mg 10/02/23 19:37 10/02/23 20:36 Lorazepam 1 Mg Tab PO 1 mg TID PRN PRN Administration anxiety Melatonin 9 mg 10/02/23 21:00 10/02/23 20:35 Melatonin 3 Mg Tab PO 9 mg HS PETERSON Administration Metoprolol Succinate 25 mg 10/02/23 20:00 10/02/23 20:36 Metoprolol Cr 50 Mg Tabcr PO 25 mg DAILY@1999 PETERSON Administration Sodium Chloride 0 ml 10/02/23 20:00 10/02/23 20:37 Normal Saline Flush 10 Ml Syr IVP 10 ml BID PETERSON Administration Warfarin Sodium 10 - 15 mg 10/02/23 20:00 10/02/23 20:35 Warfarin 5 Mg Tab PO 10 mg DAILY@1999 PETERSON Administration IV IV Catheter Type [Right Saline Lock Antecubital] IV Catheter Gauge [Right 18 Antecubital] Diet Orders Category Date Time Status Heart Healthy Eating [DIET] Nutrition 10/02/23 Dinner Active Diagnostics 10/02/23 10/02/23 10/02/23 Range/Units 18:30 17:15 16:44 WBC 5.77 (4.4-10.8) 10^3/uL RBC 5.13 (4.36-5.78) 10^6/uL Hgb 16.3 (13.5-17.5) g/dL Hct 46.7 (40.0-50.0) % MCV 91 (80-95) fL MCH 31.8 (27.0-33.0) pg MCHC 34.9 (32.0-36.0) % RDW 14.6 H (11.8-14.1) % Plt Count 127 L (130-400) 10^3/uL MPV 9.4 (8.0-11.0) fL Immature Gran % 1.0 % Neutrophils % 87.8 % Lymphocytes % 5.2 % Monocytes % 5.7 % Eosinophils % 0.0 % Basophils % 0.3 % Nucleated RBC % 0.0 (0.0-0.3) % Absolute Neutrophils 5.06 (1.2-6.7) 10^3/uL Absolute Lymphocytes 0.30 L (1.2-3.4) 10^3/uL Absolute Monocytes 0.33 (0.1-0.8) 10^3/uL Absolute Eosinophils 0.00 (0.0-0.7) 10^3/uL Absolute Basophils 0.02 (0.0-0.2) 10^3/uL ESR 20 (0-20) mm/hr PT 28.2 H (9.1-11.1) sec INR 3.1 H (0.9-1.1) Sodium 131 L (136-145) mmol/L Potassium 4.2 (3.5-5.1) mmol/L Chloride 96 L (98-107) mmol/L Carbon Dioxide 25.2 (21.0-32.0) mmol/L Anion Gap 9.8 (3-11) mmol/L BUN 15 (7-18) mg/dL Creatinine 1.1 (0.70-1.30) mg/dL Est GFR (CKD-EPI 2020) 78.79 (mL/min/1.73m2) Glucose 135 H (74-106) mg/dL Calcium 9.7 (8.5-10.1) mg/dL Magnesium 1.8 (1.8-2.4) mg/dL Total Bilirubin 1.53 H (0.2-1.0) mg/dL AST 109 H (15-37) U/L ALT 113 H (16-63) U/L Alkaline Phosphatase 63 (46-116) U/L C-Reactive Protein 9.50 H (<or=0.5) mg/dL Total Protein 8.6 H (6.4-8.2) g/dL Albumin 4.3 (3.4-5.0) g/dL Procalcitonin 0.8 ng/mL Urine Color Dark Yellow (Yellow) Urine Clarity Clear (Clear) Urine pH 6.0 (5-8) Ur Specific [place] 1.025 (1.005-1.025) Urine Protein 30 H (Neg-Trace) mg/dL Urine Ketones Negative (Negative) mg/dL Urine Blood Trace-lysed H (Negative) Urine Nitrite Negative (Negative) Urine Bilirubin Negative (Negative) Urine Urobilinogen >=8.0 H (Up to 0.2) mg/dL Ur Leukocyte Esterase Negative (Negative) Urine RBC 0-2 (0-2) HPF Urine WBC Negative (0-5) HPF Ur Epithelial Cells Negative (Negative) HPF Urine Crystals Negative (Negative) HPF Urine Bacteria Few (Negative) HPF Urine Casts Negative (Negative) LPF Urine Mucus Trace (Negative) Ur Culture Indicated? No Urine Glucose Negative (Negative) mg/dL B. divergens/MO-1 PCR Pending Babesia duncani (PCR) Pending Babesia microti DNA PCR Pending Lyme Disease Antibody Pending COVID-19 Source SARS-CoV-2 (PCR) (Negative) E.chaffeensis DNA (PCR) Pending E.ewingii/canis DNA PCR Pending E.muris eauclairensis (PCR) Pending Influenza Type A (PCR) (Negative) Influenza Type B (PCR) (Negative) RSV (PCR) (Negative) A. phagocytophilum (PCR) Pending Blood B. miyamotoi (PCR) Pending 10/02/23 Range/Units 16:16 WBC (4.4-10.8) 10^3/uL RBC (4.36-5.78) 10^6/uL Hgb (13.5-17.5) g/dL Hct (40.0-50.0) % MCV (80-95) fL MCH (27.0-33.0) pg MCHC (32.0-36.0) % RDW (11.8-14.1) % Plt Count (130-400) 10^3/uL MPV (8.0-11.0) fL Immature Gran % % Neutrophils % % Lymphocytes % % Monocytes % % Eosinophils % % Basophils % % Nucleated RBC % (0.0-0.3) % Absolute Neutrophils (1.2-6.7) 10^3/uL Absolute Lymphocytes (1.2-3.4) 10^3/uL Absolute Monocytes (0.1-0.8) 10^3/uL Absolute Eosinophils (0.0-0.7) 10^3/uL Absolute Basophils (0.0-0.2) 10^3/uL ESR (0-20) mm/hr PT (9.1-11.1) sec INR (0.9-1.1) Sodium (136-145) mmol/L Potassium (3.5-5.1) mmol/L Chloride (98-107) mmol/L Carbon Dioxide (21.0-32.0) mmol/L Anion Gap (3-11) mmol/L BUN (7-18) mg/dL Creatinine (0.70-1.30) mg/dL Est GFR (CKD-EPI 2020) (mL/min/1.73m2) Glucose (74-106) mg/dL Calcium (8.5-10.1) mg/dL Magnesium (1.8-2.4) mg/dL Total Bilirubin (0.2-1.0) mg/dL AST (15-37) U/L ALT (16-63) U/L Alkaline Phosphatase (46-116) U/L C-Reactive Protein (<or=0.5) mg/dL Total Protein (6.4-8.2) g/dL Albumin (3.4-5.0) g/dL Procalcitonin ng/mL Urine Color (Yellow) Urine Clarity (Clear) Urine pH (5-8) Ur Specific [place] (1.005-1.025) Urine Protein (Neg-Trace) mg/dL Urine Ketones (Negative) mg/dL Urine Blood (Negative) Urine Nitrite (Negative) Urine Bilirubin (Negative) Urine Urobilinogen (Up to 0.2) mg/dL Ur Leukocyte Esterase (Negative) Urine RBC (0-2) HPF Urine WBC (0-5) HPF Ur Epithelial Cells (Negative) HPF Urine Crystals (Negative) HPF Urine Bacteria (Negative) HPF Urine Casts (Negative) LPF Urine Mucus (Negative) Ur Culture Indicated? Urine Glucose (Negative) mg/dL B. divergens/MO-1 PCR Babesia duncani (PCR) Babesia microti DNA PCR Lyme Disease Antibody COVID-19 Source Nasopharynx SARS-CoV-2 (PCR) Negative (Negative) E.chaffeensis DNA (PCR) E.ewingii/canis DNA PCR E.muris eauclairensis (PCR) Influenza Type A (PCR) Negative (Negative) Influenza Type B (PCR) Negative (Negative) RSV (PCR) Negative (Negative) A. phagocytophilum (PCR) Blood B. miyamotoi (PCR) 10/02/23 18:30 Blood Culture - Pending Blood 10/02/23 17:40 Blood Culture - Pending Blood 10/02/23 17:00 Blood Culture - Pending Blood Intake and Output - 24 Hour Total 10/02/23 15:45 thru 10/02/23 17:58 Intake Total 1010 Balance 1010 Weight 97.522 kg Intake: IV 1010 Falls Risk Assessment History of Falls No History 10/02/23 17:08 Contributing Factors No Factors 10/02/23 17:08 Ambulatory Aids Independent 10/02/23 17:08 Tubes/Lines None 10/02/23 17:08 Gait Evaluation No gait disturbance 10/02/23 17:08 Cognition No cognitive impairment 10/02/23 17:08 Fall Total Score 0 10/02/23 17:08 Level of Risk Standard/Low Risk 10/02/23 17:08 Problems (Last Reviewed 11/09/22 @ 12:23 by Chuck Khan MD) Elevated transaminase level (Acute) Lymphocytosis (Acute) Fever and chills (Acute) History of mitral valve replacement with metallic valve (Acute) Afib (Chronic) v v v v v v v v v Sending and/or Receiving Nurses: Please use comment section below to note any information pertinent to the patient hand-off not included above. Information / Comments: Pt came in to ED with fever, chills, general malaise, loss of appetite x3 days. Neg CXR and FluVid. Tick and lyme panel done. Doxy, NS 1000mL bolus and tylenol x1 given in ED. Pt is A&Ox3, independent, VSS. Currently has some anxiety d/t claustrophobia. Report received from: Chyna Diaz RN
[2023-10-03] VITALS (8 sets, daily range): BP systolic 105–125; BP diastolic 73–81; PULSE 66–93; RESP 16–18; TEMP 35.8–37.5; O2SAT 93–97
--- NOTE | 2023-10-03 | DI.US_ITS ---
Exam(s) US ABDOMEN EXAM: US ABDOMEN CLINICAL HISTORY: elevated transaminases, fever TECHNIQUE: Ultrasound of complete upper abdomen performed using standard protocol. COMPARISON: CT abdomen 01/20/2023. FINDINGS: There is no ascites evident. LIVER: Liver is slightly prominent in size and diffusely hyperechoic indicating steatosis, as evident on prior CT scan listed above. There are no discrete focal hepatic lesions. GALLBLADDER/BILIARY: There are multiple gallstones. Gallbladder wall thickness is upper normal. The re is no pericholecystic fluid. The common hepatic duct isnot able to be visualized due to overlying bowel gas. PANCREAS: There is no evidence of pancreatic mass nor dilatation of the pancreatic duct. SPLEEN: Spleen size is slightly prominent, measuring 14 cm. No splenic lesions evident. KIDNEYS:Kidneys exhibit normal size with no evidence of solid mass, calculus, nor hydronephrosis. No cortical cysts evident. ABDOMINAL AORTA: There is no evidence of abdominal aortic aneurysm. IVC: Normal diameter where visualized. IMPRESSION: 1. Cholelithiasis. There are multiple gallstones. Gallbladder wall does not appear edematous and p atient was not tender over this area during scanning today. CBD was not able to be visualized due to overlying bowel gas. 2. Hepatic steatosis. This was also evident on CT scan of 01/20/2023. 3. Mild splenomegaly. There is no ascites. DATA REPOSITORY:
[2023-10-03] MEDS: DOXYCYCLINE 100 MG in Normal Saline 100 ML IVPB ×2 (06:18→17:47)
[2023-10-03] MEDS: Normal Saline Flush 10 ML SYR IVP ×3 (06:18→17:48)
[2023-10-03 06:39] LABS: Abs Immature Grans 0.04 10^3/uL (0.0-0.06); Absolute Basophil Count 0.01 10^3/uL (0.0-0.2); Basophils % 0.3 %; HCT 41.2 % (40.0-50.0); HGB 14.7 g/dL (13.5-17.5); Immature Grans % 1.1 %; Lymphocytes % 11.3 %; MCHC 35.7 % (32.0-36.0); MCV 90 fL (80-95); MPV 9.9 fL (8.0-11.0); Monocytes % 8.5 %; Neutrophils % 78.8 %; Platelet Count 111 10^3/uL (130-400); RBC 4.59 10^6/uL (4.36-5.78); RDW 14.8 % (11.8-14.1); RDW-SD 49.5 fL; WBC 3.55 10^3/uL (4.4-10.8)
[2023-10-03 06:52] LABS: INR 2.4 (0.9-1.1); Prothrombin Time 22.1 sec (9.1-11.1)
[2023-10-03 07:06] LABS: ALT 100 U/L (16-63); AST 105 U/L (15-37); Albumin 3.6 g/dL (3.4-5.0); Alkaline Phosphatase 54 U/L (46-116); Anion Gap 7.5 mmol/L (3-11); BUN 14 mg/dL (7-18); Bilirubin, Direct 0.4 mg/dL (0.0-0.2); CO2 24.5 mmol/L (21.0-32.0); CREATININE 1.1 mg/dL (0.70-1.30); Calcium 8.8 mg/dL (8.5-10.1); Chloride 97 mmol/L (98-107); Estimated GFR 78.79 (mL/min/1.73m2); Glucose 157 mg/dL (74-106); Potassium 3.6 mmol/L (3.5-5.1); Sodium 129 mmol/L (136-145); Total Protein 7.5 g/dL (6.4-8.2)
--- NOTE | 2023-10-03 07:30 | DI.US_ITS ---
APPROVED REPORT EXAM: Comprehensive 2D, Doppler, and color-flow Echocardiogram Patient Location: In-Patient Room/Bed: [facility] Card Folder: Chino Lai RDCS (AE) Indications: Rigors, fevers, mechanical MV, r/o endocarditis Other Information Study Quality: Good Conclusion Normal left ventricular wall thickness and chamber size. Ejection fraction biplane is 57% with wilton l wall motion Normal right ventricular size and function Left atrium is moderately enlarged. Right atrial size is normal Trileaflet aortic valve without stenosis or regurgitation There is a mechanical mitral valve prosthesis. There is mild mitral regurgitation No valvular abnormalities are identified. No vegetations are seen Wall motion Left Ventricle The left ventricle is normal size. The left ventricular systolic function is normal. The left ventric ular ejection fraction is within the normal range. There is normal left ventricular wall thickness. T here is normal LV segmental wall motion. There is no ventricular septal defect visualized. LVEF is 57 %. Right Ventricle The right ventricle is normal size. The right ventricular systolic function is normal. Atria Left atrium is moderately dilated. The right atrium size is normal. The interatrial septum is intact with no evidence for an atrial septal defect. Aortic Valve The aortic valve is normal in structure. Aortic valve is trileaflet. There is no aortic valvular sten osis. No aortic regurgitation is present. Mitral Valve Mechanical mitral valve is present. Mild mitral regurgitation. Tricuspid Valve The tricuspid valve is normal in structure. There is no tricuspid valve stenosis. Trace tricuspid reg urgitation. Unable to assess PA pressure. Pulmonic Valve The pulmonary valve is normal in structure. There is no pulmonic valvular stenosis. There is no pulmo josh valvular regurgitation. Great Vessels The aortic root is normal in size. The ascending aorta is normal in size. Aortic arch is normal in ca liber. IVC is normal in size and collapses >50% with inspiration. Pericardium There is no pericardial effusion. 2D Dimensions IVSD d PLAX 1.10 cm M: 0.6-1.2 Ao Root d 4.01 cm M: 3.1 - 3.7 LVPW d PLAX 1.06 cm M: 0.6 - 1.2 Ao Asc Diam d 3.30 cm M: 2.6 - 3.4 LVID d PLAX 4.67 cm M: 4.2 - 5.8 LVDs 3.28 cm M: 2.5 - 4.0 LV EF Teichholz 56.8 % FS 29.74 % LV EDV (Teich) 101.1 mL LV ESV (Teich) 43.6 mL Stroke Vol Index (Teich) 27.36 Auto EF LV EDV A4C 110.1 mL LV EDV A2C 110.4 mL LV EDV BP 110.5 mL LV ESV A4C 48.8 mL LV ESV A2C 49.5 mL LV ESV BP 49.7 mL LVEF(%) A4C 55.7 % LVEF(%) A2C 55.1 % LVEF(%) BP 55.0 % LV SV A4C 61.3 ml LV SV A2C 60.9 ml LV SV BP 60.8 ml LV CO A4C 4.6 L/min LV CO A2C 4.5 L/min LV CO BP 4.6 L/min HR A4C 75.63 BPM HR A2C 74.53 BPM LV EDV Index (BP) LA Volume LA Length A4C 5.3 cm LA Length A2C 5.7 cm LA Area A4C s 19.12 cm2 LA Area A2C s 18.41 cm2 LA Vol A4C A-L 58.49 mL LA Vol A2C A-L 50.68 mL LA Vol Biplane A-L 56.3 mL LA Vol/BSA A4C A-L LA Vol/BSA A2C A-L LA Vol/BSA BP A-L 26.8 mL/m2 LA Vol A4C MOD 56.3 mL LA Vol A2C MOD 50.3 mL LA Vol BP MOD 54.6 mL RA Volume RA Area A4C 12.2 cm2 RA ESV A4C (A-L) 29.1mL RA Vol/BSA A4C A-L RA Length A4C 4.4 cm RA ESV A4C (MOD) 26.4mL LV Diastology MV E' medial 0.055 (>0.07 m/s) MV E Vmax 1.43 (0.4-1.3 m/s) MV E/E' MED 25.95 (<14) MV A Vmax 0.95 (0.4-1.3 m/s) MV E' lateral 0.096 (>0.1 m/s) E/A Ratio 1.5 MV E/E' LAT 14.82 (<14) MV E' Average 0.076 m/s MV E/E'(average) 18.86 Aortic Valve AoV Vmax 1.38 m/s LVOT Vmax 0.83 m/s AoV Peak Grad 7.6 mmHg LVOT Peak Grad 2.8 mmHg AoV Area (Vmax) 1.50 cm2 LVOT VTI 0.160 m AoV VTI 0.218 m LVOT Mean Grad 1.5 mmHg AoV Mean Kal. 0.88 m/s LVOT SV 40.07 mL AoV Mean Grad 3.6 mmHg LVOT Diam s 1.75 cm AoV Area (VTI) 1.84 cm2 AV Regurg Peak Gr. 7.63 mmHg Velocity Ratio 0.60 Mitral Valve MV DT 217 (160-240 msec) MV Vmax TIPS 1.21 m/s MV Mean Grad 2.9 (<2mmHg) MV VTI 0.327 m Pulmonary Valve PV Vmax 1.03 (0.5-1.5 m/s) RVOT Vmax 0.55 m/s PV Peak Grad 4.2 mmHg RVOT Peak Gr. 1.2 mmHg PV Mean Kal 0.71 m/s RVOT VTI 0.107 m PV Mean Grad 2.2 mmHg RVOT Mean Gr. 0.7 mmHg
--- NOTE | 2023-10-03 08:37 | INITIAL_ITS ---
Date of service: 10/03/23 Time of Service: 08:37 Care Management Initial Assmt Initial Assessment Reason for Hospitalization: Fever, rigors, Lymphocytosis, Elevated transaminase Functional Status/Living Situation Patient Presentation: Jese was sleeping each time CM attempted to meet with him. Information for this assessment is provided by patients Quin. 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 BC/BS Out of State Health Plans (NON-[facility] ONLY!) Financial Issues: None identified Care Team Visit Care Team Role Provider Type Chuck Khan MD Primary Care Provider [facility] STAFF PHYSICIAN Loretta Rodríguez Emergency Provider NURSE PRACTITIONER Kevin Elder MD Admit Provider [facility] STAFF PHYSICIAN Attending Provider Discharge Potential Discharge Needs: PCP F/U Appt and Surgical F/U Appt Anticipated Barriers to Discharge: Medical Status Patient/Family Education Needs: Review discharge instructions, discuss Ask Me Three Transportation: Facility Transport Plan: Jese is being closely monitored and treated with IV ABX, cultures are pending. Anticipate, Jese will discharge home once medically ready for discharge via private vehicle with . No new services are anticipated at this time. ABX Course to be determined. CM will follow. PFSH All Active Problems (Updated 10/03/23 @ 13:23 by Quin Negor APRN) Lymphocytopenia (Acute) Elevated transaminase level (Acute) Lymphocytosis (Acute) Fever and chills (Acute) Right knee pain (Acute) Hypertriglyceridemia (Acute) Anxiety (Acute) Coronary arteriosclerosis (Acute) Hx of CABG and stent Essential hypertension (Acute 11/15/12) Family history of prostate cancer (Acute 11/02/16) Brother age 52 Hyperlipidemia (Acute) Psoriasis (Acute 02/16/10) [facility] AAA repair (Acute 09/23/17) Chronic anticoagulation (Acute) History of mitral valve replacement with metallic valve (Acute) on caumadin Erectile dysfunction (Acute) Upper respiratory infection (Acute) Afib (Chronic) Atrial flutter (Acute) Surgical History Mitral valve replaced Vasectomy (~2001) Stent placement (~2002) X 2 Repair of inguinal hernia (~2001) RIGHT Social History Smoking/Tobacco Use Status: Current every day Smokeless tobacco user: chewing tobacco Smoking risk assessment performed?: Yes Alcohol Intake: never Drug use: Occasionally Substance use type: marijuana Caregiver/Support person: No Household members: spouse Housing: house Communication Needs: None Do you need help understanding health information?: Rarely Pets and animals: Yes Pets and animals: cat(s), dog(s) and horse(s) Sexually active: Yes Do you think of yourself as: straight/heterosexual Current gender identity: male What is your relationship status?: How often do you talk on the phone with friends or family?: three or more times per week How often do you get together with friends or relatives?: three or more times per week How often do you attend mandaen or synagogue services?: decline to answer Do you belong to any clubs or organized social groups?: no Panel score (0-1 are the most socially isolated patients): 2 What type of physical activity do you participate in: walking and other Details: Golf Duration: 30-45 minutes/day Frequency: daily Padmini/Mormonism: No preference Special padmini needs: No Do you feel safe at home: Yes Do you feel safe in your relationship?: Yes SDOH(Care Management) Screening Will the Patient Participate in the Screening?: Yes Do you worry about having a steady place to live?: yes Problems where you live: no known problems In the past 12 months, have you had to go without electric, gas, oil or water in your home?: no Have you or anyone in your house had to go without enough food to eat?: no Has lack of transportation kept you from medical appointments or from doing things needed for daily living?: no Has anyone in your support network made you feel unsafe for any reason?: no Health Related Social Needs Health related social needs: housing instability, housed, with risk of homelessness(Z59.811)
--- NOTE | 2023-10-03 09:09 | W.PM.PROGNOT ---
Date of Service Date of service: 10/03/23 Time of Service: 09:10 Assessment and Plan Assessment and plan (1) Fever and chills: Status: Acute Assessment and plan: Continue doxycycline fro empiric treatment of anaplasmosis Tick and lyme panel, blood cultures and tick panel still pending, but patient has clinically improved Echocardiogram: Mechanical mitral valve w mild regurgitation Normal left ventricular wall thickness and chamber size. Ejection fraction biplane is 57% with normal wall motion Normal right ventricular size and function Left atrium is moderately enlarged. Right atrial size is normal Trileaflet aortic valve without stenosis or regurgitation. No pericardial effusion (2) History of mitral valve replacement with metallic valve: Status: Acute Assessment and plan: As above (3) Lymphocytopenia: Status: Acute Assessment and plan: ALC 0.3 on arrival now 0.4 continue to monitor and treat empirically for anaplasmosis (4) Elevated transaminase level: Status: Acute Assessment and plan: Values trending down but were also mildly elevated in the past Hepatitis panel pending Hepatic US: 1. Cholelithiasis. There are multiple gallstones. Gallbladder wall does not appear edematous and patient was not tender over this area during scanning today. CBD was not able to be visualized due to overlying bowel gas. 2. Hepatic steatosis. This was also evident on CT scan of 01/20/2023. 3. Mild splenomegaly. There is no ascites. CMP in AM Fatty liver changes noted on prior CT abdomen and pelvis from 01/20/23 (5) Afib: Status: Chronic Assessment and plan: Remains in NSR HR 78 on tele, most likely has a hx of paroxysmal afib or may have been related to his MVR; past ablation also mentioned in notes from [facility] [place] on 09/2022. . Continue Toprol XL for rate control and continue warfarin w/ goal of INR 3 to to 3.9 mentioned initially but as per paient INR goal is 2.5 to 3.5 INR is 2.4 today will give ordered dose today and recheck in AM Discussed with Dr. Bragg Qualifiers: Atrial fibrillation type: longstanding persistent Qualified Code(s): I48.11 - Longstanding persistent atrial fibrillation Subjective Subjective Patient reports: no new complaints, feels better, pain is less, tolerating liquids well, tolerating a regular diet, voiding w/o difficulty, bowel movement and afebrile; denies diarrhea, nausea, vomiting or shortness of breath Exam Narrative Exam Narrative: Constitutional The patient is lying in bed comfortable, without acute distress and cooperative during the interview; spouse at bedside HENMT: Head is atraumatic, normocephalic, no lymphadenopathy. Facial structures with normal appearance Neck: Normal ROM, no meningeal signs Neuro:alert and oriented X4 . No neurological focal deficit Resp: unlabored breathing, clear lung bilaterally Cardio:SR HR 78, regular rhythm, S1, S2, no murmur, bilateral radial and dorsalis pedis pulses are positive GI: Abdomen is not distended, soft and non tender, bowel sounds are present : Negative Costovertebral angle tenderness Back/spine/Pelvis: No back tenderness, normal alignment Integumentary:R lower abd, left lower flank and left back scars- most likely insect (wood tick) bites - oldest one from 3 months aga Psych: RASS 0, congruent mood and normal affect. Objective Last Vital Signs Temp 36.6 C 10/03/23 08:28 Pulse 79 10/03/23 08:28 Resp 17 10/03/23 08:28 BP 111/77 10/03/23 08:28 Pulse Ox 95 10/03/23 08:28 Laboratory Results - last 24 hr 10/02/23 10/02/23 10/02/23 16:16 16:44 17:15 WBC 5.77 RBC 5.13 Hgb 16.3 Hct 46.7 MCV 91 MCH 31.8 MCHC 34.9 RDW 14.6 H Plt Count 127 L MPV 9.4 Immature Gran % 1.0 Neutrophils % 87.8 Lymphocytes % 5.2 Monocytes % 5.7 Eosinophils % 0.0 Basophils % 0.3 Nucleated RBC % 0.0 Absolute Neutrophils 5.06 Absolute Lymphocytes 0.30 L Absolute Monocytes 0.33 Absolute Eosinophils 0.00 Absolute Basophils 0.02 ESR 20 PT 28.2 H INR 3.1 H Sodium 131 L Potassium 4.2 Chloride 96 L Carbon Dioxide 25.2 Anion Gap 9.8 BUN 15 Creatinine 1.1 Est GFR (CKD-EPI 2020) 78.79 Glucose 135 H Calcium 9.7 Magnesium 1.8 Total Bilirubin 1.53 H Conjugated Bilirubin AST 109 H ALT 113 H Alkaline Phosphatase 63 C-Reactive Protein 9.50 H Total Protein 8.6 H Albumin 4.3 Procalcitonin Urine Color Dark Yellow Urine Clarity Clear Urine pH 6.0 Ur Specific [place] 1.025 Urine Protein 30 H Urine Ketones Negative Urine Blood Trace-lysed H Urine Nitrite Negative Urine Bilirubin Negative Urine Urobilinogen >=8.0 H Ur Leukocyte Esterase Negative Urine RBC 0-2 Urine WBC Negative Ur Epithelial Cells Negative Urine Crystals Negative Urine Bacteria Few Urine Casts Negative Urine Mucus Trace Ur Culture Indicated? No Urine Glucose Negative COVID-19 Source Nasopharynx SARS-CoV-2 (PCR) Negative Influenza Type A (PCR) Negative Influenza Type B (PCR) Negative RSV (PCR) Negative 10/02/23 10/03/23 10/03/23 18:30 06:20 06:20 WBC 3.55 L RBC 4.59 Hgb 14.7 Hct 41.2 MCV 90 MCH 32.0 MCHC 35.7 RDW 14.8 H Plt Count 111 L MPV 9.9 Immature Gran % 1.1 Neutrophils % 78.8 Lymphocytes % 11.3 Monocytes % 8.5 Eosinophils % 0.0 Basophils % 0.3 Nucleated RBC % 0.0 Absolute Neutrophils 2.80 Absolute Lymphocytes 0.40 L Absolute Monocytes 0.30 Absolute Eosinophils 0.00 Absolute Basophils 0.01 ESR PT 22.1 H INR 2.4 H Sodium 129 L Potassium 3.6 Chloride 97 L Carbon Dioxide 24.5 Anion Gap 7.5 BUN 14 Creatinine 1.1 Est GFR (CKD-EPI 2020) 78.79 Glucose 157 H Calcium 8.8 Magnesium Total Bilirubin 1.50 H Conjugated Bilirubin Cancelled 0.4 H AST 105 H ALT 100 H Alkaline Phosphatase 54 C-Reactive Protein Total Protein 7.5 Albumin 3.6 Procalcitonin 0.8 Urine Color Urine Clarity Urine pH Ur Specific [place] Urine Protein Urine Ketones Urine Blood Urine Nitrite Urine Bilirubin Urine Urobilinogen Ur Leukocyte Esterase Urine RBC Urine WBC Ur Epithelial Cells Urine Crystals Urine Bacteria Urine Casts Urine Mucus Ur Culture Indicated? Urine Glucose COVID-19 Source SARS-CoV-2 (PCR) Influenza Type A (PCR) Influenza Type B (PCR) RSV (PCR) Time Spent with Patient Time Spent with Patient: >50 minutes Time was spent: preparing to see the patient(eg.review tests), obtaining and/or reviewing separately otained hiistory, ordering medications,tests, procedures, referring, communicating with other health critical care physician, indepentently interpreting results, counseling the patient and care coordination
[2023-10-03] MEDS: Acetaminophen 325 MG TAB 650 MG PO ×2 (12:09→20:00)
[2023-10-03] MEDS: LORazepam 1 MG TAB PO ×2 (12:53→20:01)
[2023-10-03 19:43] LABS: Hepatitis A Antibody IgM Negative (Negative); Hepatitis B Core Antibody Negative (Negative); Hepatitis B surface Ag Negative (Negative); Hepatitis C Ab w Rflx HCV PCR Negative (Negative)
[2023-10-03] MEDS: Warfarin 5 MG TAB 15 MG PO (19:59)
[2023-10-03] MEDS: Aspirin E.C. 81 MG TABEC PO (20:01)
[2023-10-03] MEDS: Melatonin 3 MG TAB 9 MG PO (20:01)
[2023-10-03] MEDS: Metoprolol 25 MG TAB PO (20:02)
[2023-10-04 03:34] VITALS: BP 119/71; PULSE 79; RESP 18; TEMP 36.2; O2SAT 98
[2023-10-04] MEDS: Normal Saline Flush 10 ML SYR IVP ×2 (06:04→08:45)
[2023-10-04] MEDS: DOXYCYCLINE 100 MG in Normal Saline 100 ML IVPB (06:04)
[2023-10-04 06:39] LABS: Abs Immature Grans 0.03 10^3/uL (0.0-0.06); HCT 41.9 % (40.0-50.0); MCH 31.7 pg (27.0-33.0); MCHC 35.8 % (32.0-36.0); MCV 89 fL (80-95); MPV 10.2 fL (8.0-11.0); Platelet Count 116 10^3/uL (130-400); RBC 4.73 10^6/uL (4.36-5.78); RDW 14.7 % (11.8-14.1); RDW-SD 48.2 fL; WBC 3.15 10^3/uL (4.4-10.8)
[2023-10-04 06:46] LABS: INR 2.2 (0.9-1.1); Prothrombin Time 20.8 sec (9.1-11.1)
[2023-10-04 06:56] LABS: ALT 113 U/L (16-63); AST 123 U/L (15-37); Albumin 3.6 g/dL (3.4-5.0); Alkaline Phosphatase 58 U/L (46-116); Anion Gap 11.3 mmol/L (3-11); BUN 13 mg/dL (7-18); Bilirubin, Total 1.49 mg/dL (0.2-1.0); CO2 24.7 mmol/L (21.0-32.0); CREATININE 0.9 mg/dL (0.70-1.30); Chloride 100 mmol/L (98-107); Estimated GFR 100.24 (mL/min/1.73m2); Glucose 122 mg/dL (74-106); Potassium 3.5 mmol/L (3.5-5.1); Sodium 136 mmol/L (136-145); Total Protein 7.5 g/dL (6.4-8.2)
[2023-10-04 07:16] LABS: Absolute Lymphocyte Count 0.85 10^3/uL (1.2-3.4); Absolute Monocyte Count 0.28 10^3/uL (0.1-0.8); Absolute Neutrophil Count 2.02 10^3/uL (1.2-6.7); Atypical Lymphocytes % 4 %
[2023-10-04 07:17] LABS: Diff Comment Manual Differential; RBC Morphology Normal
[2023-10-04 07:39] VITALS: BP 106/77; PULSE 70; RESP 18; TEMP 36.8; O2SAT 96
--- NOTE | 2023-10-04 09:30 | W.PM.PROGNOT ---
Date of Service Date of service: 10/04/23 Time of Service: 10:40 Assessment and Plan Assessment and plan (1) Fever and chills: Status: Acute Assessment and plan: Continue doxycycline fro empiric treatment of anaplasmosis Leukocytosis resolved Hepatitis panel and blood cultures negative Tick and lyme panel and tick panel still pending Echocardiogram : Mechanical mitral valve w mild regurgitation Normal left ventricular wall thickness and chamber size. Ejection fraction biplane is 57% with normal wall motion Normal right ventricular size and function Left atrium is moderately enlarged. Right atrial size is normal Trileaflet aortic valve without stenosis or regurgitation. No pericardial effusion (2) History of mitral valve replacement with metallic valve: Status: Acute Assessment and plan: As above (3) Lymphocytopenia: Status: Acute Assessment and plan: ALC 0.3 on arrival now 0.8 Will continue to monitor and treat empirically for anaplasmosis- serology results still pending (4) Elevated transaminase level: Status: Acute Assessment and plan: Values trending down but were also mildly elevated in the past Hepatitis panel negative - mild transaminitis again seen today Hepatic US: 1. Cholelithiasis. There are multiple gallstones. Gallbladder wall does not appear edematous and patient was not tender over this area during scanning today. CBD was not able to be visualized due to overlying bowel gas. 2. Hepatic steatosis. This was also evident on CT scan of 01/20/2023. 3. Mild splenomegaly. There is no ascites. CMP in AM Fatty liver changes noted on prior CT abdomen and pelvis from 01/20/23 (5) Afib: Status: Chronic Assessment and plan: Remains in NSR HR 78 on tele, most likely has a hx of paroxysmal a-fib or may have been related to his MVR; past ablation also mentioned in notes from [facility] [place] on 09/[place]22. Continue Toprol XL for rate control and continue warfarin w/ goal of INR 3 to to 3.9 mentioned initially but as per paient INR goal is 2.5 to 3.5 - MVR goals usually for INR 3.0 to 3.5 INR is 2.1 today will give ordered dose today and recheck in AM- Will bridge with LMWH On tele: WIRELESS [employer] TECHNICIAN question ST elevation: EKG completed w/o sign of ischemia and similar to EKG completed on 10/01 in the ED; patient is asymptomatic Qualifiers: Atrial fibrillation type: longstanding persistent Qualified Code(s): I48.11 - Longstanding persistent atrial fibrillation (6) Subtherapeutic international normalized ratio (INR): Status: Acute Assessment and plan: INR 3.1 on admission, then 2.4 now 2.1 INR goals as per patient 2.5 to 3.5 VS literature INR goal for MVR 3.0 to 3.5 Nevertheless INR is subtherapeutic while on home dose warfarin regimen-will continue and bridge Start LMWH at 1mg/kg SC Q 12 hours-PTT added to AM labs INR and PTT in AM Discussed with Dr. Bragg Subjective Subjective Patient reports: feels better, tolerating liquids well, tolerating a regular diet, voiding w/o difficulty, flatus, afebrile and fever; denies diarrhea, blood in stool, nausea, vomiting or shortness of breath Exam Narrative Exam Narrative: Constitutional The patient is lying in bed comfortable, without acute distress, no further headaches HENMT: Facial structures with normal appearance Neuro:alert and oriented X4 . No neurological focal deficit Resp: Clear lung bilaterally Cardio:SR HR 78, regular rhythm, S1, S2, no murmur, bilateral radial and dorsalis pedis pulses are positive GI: Abdomen is not distended, soft and non tender, bowel sounds are present Back/spine/Pelvis: No back tenderness, normal alignment Integumentary:R lower abd, left lower flank and left back scars- most likely insect (wood tick) bites - not changed since 10/02 Psych: RASS 0, congruent mood and normal affect. Objective Last Vital Signs Temp 36.8 C 10/04/23 07:39 Pulse 70 10/04/23 07:39 Resp 18 10/04/23 07:39 BP 106/77 10/04/23 07:39 Pulse Ox 96 10/04/23 07:39 Laboratory Results - last 24 hr 10/03/23 10/04/23 06:20 06:09 WBC 3.15 L RBC 4.73 Hgb 15.0 Hct 41.9 MCV 89 MCH 31.7 MCHC 35.8 RDW 14.7 H Plt Count 116 L MPV 10.2 Immature Gran % See Differential Neutrophils % 64.0 Lymphocytes % 23.0 Atypical Lymphs % 4 Monocytes % 9.0 Eosinophils % 0.0 Basophils % 0.0 Nucleated RBC % 0.0 Absolute Neutrophils 2.02 Absolute Lymphocytes 0.85 L Absolute Monocytes 0.28 Absolute Eosinophils 0.00 Absolute Basophils 0.00 RBC Morphology Normal PT 20.8 H INR 2.2 H Sodium 136 Potassium 3.5 Chloride 100 Carbon Dioxide 24.7 Anion Gap 11.3 H BUN 13 Creatinine 0.9 Est GFR (CKD-EPI 2020) 100.24 Glucose 122 H Calcium 9.0 Total Bilirubin 1.49 H AST 123 H ALT 113 H Alkaline Phosphatase 58 Total Protein 7.5 Albumin 3.6 Hepatitis A IgM Ab Negative Hep Bs Antigen Negative Hep B Core Total Ab Negative Hepatitis C Antibody Negative Time Spent with Patient Time Spent with Patient: >50 minutes Time was spent: preparing to see the patient(eg.review tests), obtaining and/or reviewing separately otained hiistory, ordering medications,tests, procedures, referring, communicating with other health manager wound care, indepentently interpreting results, counseling the patient and care coordination
[2023-10-04 09:44] LABS: Lab Add On Test Done
[2023-10-04 09:54] LABS: PTT Activated 38.4 sec (23.6-32.8)
--- NOTE | 2023-10-04 10:30 | RT.EKG_ITS ---
APPROVED REPORT Exam: Resting ECG Reason for Exam: change in telemetry strip for susp to ST elevation Patient Location: I HR:93 bpm ECG Measurements Heart Rate 93 AXIS MA 167 P 47 QRSd 120 QRS -79 QT 382 T 87 QTc 476 Conclusion Sinus rhythm...normal P axis, V-rate 50- 99 Incomplete RBBB and LAFB...axis(240,-40), S>R II III aVF
[2023-10-04 10:59] LABS: Lyme Ab w Rflx to Lyme Confirm Negative (Negative)
[2023-10-04 11:01] VITALS: BP 115/83; PULSE 91; RESP 20; TEMP 36.9; O2SAT 98
--- NOTE | 2023-10-04 11:22 | PDOC.CMDIS ---
Date of service: 10/04/23 Time of Service: 11:22 LACE Index Scoring Tool Questions: Length of Stay (in days): 2 Was the patient admitted via the E.D.?: Yes E.D. Visits: 1 Answers: Total Score: 6 Risk of Readmission: Low Risk Care Management Discharge Plan Reason for Hospitalization: Fever, Chills Discharge Plan: Jese is discharged home via private vehicle with family. He will follow up with community providers and his discharge plan of care as instructed. No new services are ordered at the time of this discharge. Patient/Family Education Needs: Review discharge instructions, limitations, medications and plan to follow up with community providers. Discuss ask me three. SDOH Health Related Social Needs: Health related social needs risk of homeless Health related social needs: housing instability, housed, with risk of homelessness(Z59.811)
[2023-10-04] MEDS: Acetaminophen 325 MG TAB 650 MG PO (12:32)
[2023-10-04] MEDS: LORazepam 1 MG TAB PO (12:32)
--- NOTE | 2023-10-04 13:11 | DSE_ITS ---
Date of service: 10/04/23 Time of Service: 13:12 DS: Diagnosis Discharge Diagnosis (1) Fever and chills: Status: Acute (2) History of mitral valve replacement with metallic valve: Status: Acute (3) Lymphocytopenia: Status: Acute (4) Elevated transaminase level: Status: Acute (5) Afib: Status: Chronic (6) Subtherapeutic international normalized ratio (INR): Status: Acute Discharge Plan Disposition Patient Disposition: Home Condition: Improving Discharge Details Reason For Visit: fever, rigors, lymphocytopenia, r/o anaplasmosis Admit Date/Time: 10/02/23 18:34 Admit Provider: Kevin Elder Attending Provider: Kevin Elder Primary Care Provider: Chuck Khan Hospital Course Hospital Course: This 58 years old male patient with past medical history of coronary artery disease, myocardial infarction, status post CABG with stent, AAA repair and mechanical mitral valve replacement on warfarin presented to the ED at [facility] on 10/02/2023 with fevers, chills, rigors and sweat with diffuse muscle aches, nausea but no abdominal pain, vomiting, or diarrhea. 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 Hehad multiple tick bites over this summer w/ the most recent ones being 2 to 3 weeks ago on his thighs. Earlier this summer about 3 months ago he had one on his back that had been embedded for couple days before his got it out. Workup in the ED was remarkable for mild lymphocytopenia (0.3) , thrombocytopenia at 127 and his CMP showed mild transaminitis with normal alkaline phosphatase but elevated total bilirubin at 1.53. Sodium was 131. The patient has a history of fatty liver changes seen on the abdominal CT completed in 2022 but prior LFTs were only mildly elevated at 49 and 66. CRP was elevated at 9.5 and procalcitonin was 0.8. EKG was negative for ischemia. In the ED the patient remained afebrile and chest x-ray and UA showed no significant findings. Blood cultures were pending. In the ED the patient received IV fluid and was started on doxycycline IV. The hospitalist was consulted and the patient admitted to the medical surgical floor on telemetry for evaluation and management of fevers, chills, rigors and rule out endocarditis, possible anaplasmosis versus tickborne illness versus other infection. The hospitalist elected not to pursue broad-spectrum antibiotic as the patient was afebrile without leukocytosis, without band or neutrophilia. During the stay the patient continued to be treated with IV doxycycline and clinically improved. The echocardiogram was completed: Echocardiogram: Mechanical mitral valve w mild regurgitation Normal left ventricular wall thickness and chamber size. Ejection fraction biplane is 57% with normal wall motion Normal right ventricular size and function Left atrium is moderately enlarged. Right atrial size is normal Trileaflet aortic valve without stenosis or regurgitation. No pericardial effusion An hepatic ultrasound was completed: Hepatic US: 1. Cholelithiasis. There are multiple gallstones. Gallbladder wall does not appear edematous and patient was not tender over this area during scanning today. CBD was not able to be visualized due to overlying bowel gas. 2. Hepatic steatosis. This was also evident on CT scan of 01/20/2023. 3. Mild splenomegaly. There is no ascites. The patient continued to receive his home medicine regimen for his chronic conditions. An EKG was completed today after questionable ST elevation in 1- lead in telemetry reading and showed no sign of ischemia. INR was subtherapeutic at 2.4 on 10/02 then 2.2 today and additional management such as bridging with Lovenox was refused. Options to go home and pursue oral treatment with antibiotic was accepted. After discussion with the spouse who is a registered nurse, they will reach out to the primary care practitioner for adjustment of the regiment upon discharge today. The patient is hepatitis panel was negative, blood cultures were also negative. The tickborne borne illness and Lyme disease panels were still pending but as the patient is clinically improving. Oral treatment with doxycycline at home will be continued upon discharge. The patient should see his primary care practitioner this week or within 7 days of discharge for follow-up on his care. The spouse was making calls to the primary care's office to arrange for an appointment this week. Recommendation to complete INR testing on 10/05/2023 with follow-up by primary care practitioner. Discussed with Dr. Bragg Home Meds and New Rx's Prescriptions: New doxycycline hyclate 100 mg capsule 100 mg PO BID Qty: 20 0RF Continued lorazepam 1 mg tablet 1 mg PO TID PRN (Reason: anxiety) Qty: 45 0RF Skyrizi 150 mg/mL pen injector 150 mg subcut Q12W Qty: 1 3RF BABY ASPIRIN 81 MG TAB.CHEW 81 mg PO DAILY amoxicillin 500 mg tablet 2,000 mg PO DAILY PRN (Reason: infection prophylaxis) Qty: 20 1RF Rx Instructions: 4 tabs 1 hour prior to procedure atorvastatin 80 mg tablet 80 mg PO DAILY Qty: 90 3RF warfarin 5 mg tablet 10 - 15 mg PO DAILY Qty: 270 3RF Protocol: Dose Management Condition: Tuesday Dose/Route: 10 mg Instruction: 2 x 5 mg tablets Condition: Tuesday Dose/Route: 15 mg Instruction: 3 x 5 mg tablets Condition: Tuesday Dose/Route: 10 mg Instruction: 2 x 5 mg tablets Condition: Tuesday Dose/Route: 15 mg Instruction: 3 x 5 mg tablets Condition: Dose/Route: 10 mg Instruction: 2 x 5 mg tablets Condition: Tuesday Dose/Route: 15 mg Instruction: 3 x 5 mg tablets Condition: Tuesday Dose/Route: 10 mg Instruction: 2 x 5 mg tablets Protocol Text: Adjustment Start Date: Tuesday10/03/23 INR Value: 2.4 INR Date: 10/03/23 Recheck Date: 11/02/23 Patient Comments: m-w-f 15mg all other days are 10 metoprolol succinate 50 mg tablet extended release 24 hr 25 mg PO DAILY ondansetron 4 mg tablet,disintegrating 4 mg PO Q8H PRN (Reason: nausea and vomiting) Qty: 30 0RF Discharge Instructions Referrals: Chuck Khan MD [Primary Care Provider] - (F/u within 7 days of discharge) Activity:: Activity as Tolerated Equipment/Supplies:: No Equipment Needed Diet:: heart healthy Discharge Orders Discharge Orders: Discharge Order (Routine); Ordered 10/04/23 Ordered By: Quin Negro DS: Summary Time Spent with Patient providing and/or coordinating discharge services: Greater than 30 minutes Status at Discharge Functional status at discharge: independent ambulation Overall status at discharge: patient is progressing back to baseline Mental Status: mental status grossly normal Speech and Movement: speech and movement normal Mood: congruent mood Affect: normal affect Quality:SDOH Health Related Social Needs: Health related social needs risk of homeless Exam Narrative Exam Narrative: Constitutional The patient is lying in bed comfortable, without acute distress, no further headaches HENMT: Facial structures with normal appearance Neuro:alert and oriented X4 . No neurological focal deficit Resp: Clear lung bilaterally Cardio:SR HR 78, regular rhythm, S1, S2, no murmur, bilateral radial and dorsalis pedis pulses are positive GI: Abdomen is not distended, soft and non tender, bowel sounds are present Back/spine/Pelvis: No back tenderness, normal alignment Integumentary:R lower abd, left lower flank and left back scars- most likely insect (wood tick) bites - not changed since 10/02 Psych: RASS 0, congruent mood and normal affect. Psych Mental Status: mental status grossly normal Speech and Movement: speech and movement normal Mood: congruent mood Affect: normal affect DS: Data Vitals/I&O Vitals and I&O: Vital Signs Temperature 36.9 C 10/04/23 11:01 Temperature Source Tympanic 10/04/23 11:01 Pulse 91 H 10/04/23 11:01 Pulse Rhythm Regular 10/04/23 08:55 Pulse 101 H 10/02/23 19:20 Respiratory Rate 20 10/04/23 11:01 Respiratory Effort Normal, Non-Labored 10/04/23 08:55 Respiratory Depth Normal 10/04/23 08:55 Respiratory Pattern Normal 10/04/23 08:55 Blood Pressure 115/83 10/04/23 11:01 Blood Pressure Mean 72 10/02/23 19:44 Blood Pressure Position Sitting 10/02/23 17:08 Pulse Oximetry 98 10/04/23 11:01 Oxygen Delivery Method Room Air 10/04/23 11:01 Oxygen Flow Rate 0 10/04/23 11:01 Pain Level 0 10/04/23 11:01 Comment has a headache currently 10/02/23 17:08 Intake & Output 10/03/23 10/04/23 10/04/23 23:59 11:59 23:59 Intake Total 590 / 820 550 / 550 Output Total 1999 1000 / 1000 Balance -1410 / -1180 -450 / -450 Intake: IV 110 / 220 100 / 100 Oral 480 / 600 450 / 450 Output: Urine 1999 1000 / 1000 Other: Urine Color Light Jeannette Yellow Urine Appearance Clear Clear Urine Odor Normal Normal Comment pT stated he voided. Voiding Methods Toilet Toilet Data Completed and Pending Labs on day of discharge: Labs from last 24 hours 10/04/23 10/03/23 06:09 06:20 WBC 3.15 L RBC 4.73 Hgb 15.0 Hct 41.9 MCV 89 MCH 31.7 MCHC 35.8 RDW 14.7 H Plt Count 116 L MPV 10.2 Immature Gran % See Differential Neutrophils % 64.0 Lymphocytes % 23.0 Atypical Lymphs % 4 Monocytes % 9.0 Eosinophils % 0.0 Basophils % 0.0 Nucleated RBC % 0.0 Absolute Neutrophils 2.02 Absolute Lymphocytes 0.85 L Absolute Monocytes 0.28 Absolute Eosinophils 0.00 Absolute Basophils 0.00 RBC Morphology Normal PT 20.8 H INR 2.2 H APTT 38.4 H Sodium 136 Potassium 3.5 Chloride 100 Carbon Dioxide 24.7 Anion Gap 11.3 H BUN 13 Creatinine 0.9 Est GFR (CKD-EPI 2020) 100.24 Glucose 122 H Calcium 9.0 Total Bilirubin 1.49 H AST 123 H ALT 113 H Alkaline Phosphatase 58 Total Protein 7.5 Albumin 3.6 Hepatitis A IgM Ab Negative Hep Bs Antigen Negative Hep B Core Total Ab Negative Hepatitis C Antibody Negative Add-On Test Request Done Preliminary micro results at discharge 10/02/23 18:30 Blood Culture - Preliminary Blood NO GROWTH 24 HOURS 10/02/23 17:40 Blood Culture - Preliminary Blood NO GROWTH 24 HOURS 10/02/23 17:00 Blood Culture - Preliminary Blood NO GROWTH 24 HOURS PFSH All Active Problems (Updated 10/04/23 @ 09:42 by Quin Negro APRN) Subtherapeutic international normalized ratio (INR) (Acute) Lymphocytopenia (Acute) Elevated transaminase level (Acute) Lymphocytosis (Acute) Fever and chills (Acute) Right knee pain (Acute) Hypertriglyceridemia (Acute) Anxiety (Acute) Coronary arteriosclerosis (Acute) Hx of CABG and stent Essential hypertension (Acute 11/15/12) Family history of prostate cancer (Acute 11/02/16) Brother age 52 Hyperlipidemia (Acute) Psoriasis (Acute 02/16/10) Followed by dermatology at [place] [place] S/P AAA repair (Acute 09/23/17) Chronic anticoagulation (Acute) History of mitral valve replacement with metallic valve (Acute) on caumadin Erectile dysfunction (Acute) Upper respiratory infection (Acute) Afib (Chronic) Atrial flutter (Acute) Surgical History Mitral valve replaced Vasectomy (~2001) Stent placement (~2002) X 2 Repair of inguinal hernia (~2001) RIGHT Social History Smoking/Tobacco Use Status: Current every day Smokeless tobacco user: chewing tobacco Smoking risk assessment performed?: Yes Alcohol Intake: never Drug use: Occasionally Substance use type: marijuana Caregiver/Support person: No Household members: spouse Housing: house Communication Needs: None Do you need help understanding health information?: Rarely Pets and animals: Yes Pets and animals: cat(s), dog(s) and horse(s) Sexually active: Yes Do you think of yourself as: straight/heterosexual Current gender identity: male What is your relationship status?: How often do you talk on the phone with friends or family?: three or more times per week How often do you get together with friends or relatives?: three or more times per week How often do you attend lutheran or hoahaoism services?: decline to answer Do you belong to any clubs or organized social groups?: no Panel score (0-1 are the most socially isolated patients): 2 What type of physical activity do you participate in: walking and other Details: Golf Duration: 30-45 minutes/day Frequency: daily Padmini/Oriental Orthodox: No preference Special padmini needs: No Do you feel safe at home: Yes Do you feel safe in your relationship?: Yes Time Spent with Patient Time Spent with Patient: >85 minutes Time was spent: preparing to see the patient(eg.review tests), obtaining and/or reviewing separately otained hiistory, ordering medications,tests, procedures, referring, communicating with other health career transition specialist, indepentently interpreting results, counseling the patient and care coordination
--- NOTE | 2023-10-06 10:57 | NUR.NOTE ---
Received call from lab with critical lab result. This patient had been previously discharged. Patient tested +Anaplasmosis; escalated to charge Nurse JANELL Bradshaw who contacted Dr. Rojas with critical lab result. See chart for further detail.
[2023-10-06 15:52] LABS: Anaplasma phagocytophilum Positive (Negative); B. miyamotoi PCR Negative (Negative); Babesia divergens/MO-1 Negative (Negative); Babesia duncani Negative (Negative); Babesia microti Negative (Negative); Ehrlichia chaffeensis Negative (Negative); Ehrlichia ewingii/canis Negative (Negative); Ehrlichia muris eauclairensis Negative (Negative)
== END 2023-10-04 13:39 | disposition home or self-care (01) ==
LOC: ER 19:32 → MS 19:33
PROVIDERS: Nurse Practitioner Acute Care; Admitting Provider Internal Medicine; Emergency Provider Nurse Practitioner Family; PCP Family Medicine; Visit Provider Internal Medicine
DX: R50.9 Fever, unspecified (principal); D72.810 Lymphocytopenia; I48.11 Longstanding persistent atrial fibrillation; R74.01 Elevation of levels of liver transaminase levels; R79.1 Abnormal coagulation profile; D69.6 Thrombocytopenia, unspecified; I25.2 Old myocardial infarction; Z95.2 Presence of prosthetic heart valve; I25.10 Atherosclerotic heart disease of native coronary artery without angina pectoris; Z79.899 Other long term (current) drug therapy; Z95.1 Presence of aortocoronary bypass graft; Z95.5 Presence of coronary angioplasty implant and graft; Z79.01 Long term (current) use of anticoagulants; E87.1 Hypo-osmolality and hyponatremia; F41.9 Anxiety disorder, unspecified; L40.9 Psoriasis, unspecified; I48.92 Unspecified atrial flutter
CPT/HCPCS: 00123; 36415; 80053; 84145; 85652; 86704; 86709; 86803; 87040; 87340; 87637; 87798; 93005; 93306; 96361; 96365; 96366; 99285; 71046; 76700; 81003; 81015; 82248; 83735; 85025; 85610; 85730; 86140; 86618; 93010; 99222; 99233; 99239; G0378

== ENCOUNTER 2024-02-13 13:18 | Emergency (ER) | payer BC, SELFPAY ==
[2024-02-13] VITALS (23 sets, daily range): BP systolic 122–174; BP diastolic 73–121; PULSE 75–156; RESP 11–25; TEMP 36.5; O2SAT 93–97
--- NOTE | 2024-02-13 13:15 | RT.EKG_ITS ---
APPROVED REPORT Exam: Resting ECG Reason for Exam: irreg HR Patient Location: E HR:83 bpm ECG Measurements Heart Rate 83 AXIS MS 129 P 66 QRSd 106 QRS 49 QT 415 T [id number] QTc 486 Conclusion Sinus rhythm...normal P axis, V-rate 60- 99 No STEMI
--- NOTE | 2024-02-13 13:15 | RT.EKG_ITS ---
APPROVED REPORT Exam: Resting ECG Reason for Exam: palpitations/a-fib Patient Location: E HR:154 bpm ECG Measurements Heart Rate 154 AXIS FL 89 P 21 QRSd 111 QRS -85 QT 297 T 108 QTc 474 Conclusion Sinus tachycardia...rate> 99 Incomplete RBBB and LAFB...axis(240,-40), S>R II III aVF I have reviewed and interpreted ECG and agree with software generated interpretation.
[2024-02-13] MEDS: dilTIAZem 25 MG/5 ML VIAL 20 MG IVP (13:42)
--- NOTE | 2024-02-13 13:45 | RT.EKG_ITS ---
APPROVED REPORT Exam: Resting ECG Reason for Exam: rhythm change Patient Location: E HR:82 bpm ECG Measurements Heart Rate 82 AXIS ID 179 P 58 QRSd 117 QRS -80 QT 389 T 91 QTc 456 Conclusion Sinus rhythm...normal P axis, V-rate 60- 99 Incomplete right bundle branch block...QRSd >112, terminal axis(90,270) LVH with IVCD, LAD and secondary repol abnrm...multi-criteria, wQRSd, abnr ST-T I have reviewed and interpreted ECG and agree with software generated interpretation.
[2024-02-13 13:46] LABS: Abs Immature Grans 0.06 10^3/uL (0.0-0.06); Absolute Basophil Count 0.11 10^3/uL (0.0-0.2); Absolute Eosinophil Count 0.36 10^3/uL (0.0-0.7); Absolute Lymphocyte Count 1.94 10^3/uL (1.2-3.4); Absolute Neutrophil Count 7.52 10^3/uL (1.2-6.7); Eosinophils % 3.4 %; HCT 49.3 % (40.0-50.0); HGB 17.2 g/dL (13.5-17.5); Immature Grans % 0.6 %; Lymphocytes % 18.3 %; MCH 31.7 pg (27.0-33.0); MCHC 34.9 % (32.0-36.0); MCV 91 fL (80-95); MPV 9.6 fL (8.0-11.0); Monocytes % 5.7 %; Platelet Count 207 10^3/uL (130-400); RBC 5.42 10^6/uL (4.36-5.78); RDW 15.1 % (11.8-14.1); RDW-SD 49.9 fL; WBC 10.59 10^3/uL (4.4-10.8)
[2024-02-13 14:10] LABS: ALT 86 U/L (16-63); AST 66 U/L (15-37); Albumin 4.5 g/dL (3.4-5.0); Alkaline Phosphatase 86 U/L (46-116); Anion Gap 5.4 mmol/L (3-11); BUN 12 mg/dL (7-18); Bilirubin, Total 0.89 mg/dL (0.2-1.0); CO2 30.6 mmol/L (21.0-32.0); Calcium 9.9 mg/dL (8.5-10.1); Chloride 104 mmol/L (98-107); Estimated GFR 88.33 (mL/min/1.73m2); Glucose 167 mg/dL (74-106); Magnesium 1.9 mg/dL (1.8-2.4); NT-proBNP 55 pg/mL (<300); Potassium 4.1 mmol/L (3.5-5.1); Sodium 140 mmol/L (136-145); TSH (W/Ref FT4) 2.91 uIU/mL (0.36-3.74); Total Protein 8.6 g/dL (6.4-8.2); Troponin I 12 ng/L (<or=76)
[2024-02-13 14:25] LABS: INR 3.5 (0.9-1.1); Prothrombin Time 31.8 sec (9.1-11.1)
--- NOTE | 2024-02-13 15:44 | W.ED.GENAD ---
Discharge Plan Disposition Patient Disposition: Home Condition: Stable Discharge Details Clinical Impression: Dysrhythmia Primary Care Provider: Chuck Khan ED Provider: Nancy Lazaro Home Meds and New Rx's Prescriptions: New metoprolol tartrate 25 mg tablet 25 mg PO DAILY Qty: 10 0RF Continued lorazepam 1 mg tablet 1 mg PO TID PRN (Reason: anxiety) Qty: 45 0RF Skyrizi 150 mg/mL pen injector 150 mg subcut Q12W Qty: 1 3RF BABY ASPIRIN 81 MG TAB.CHEW 81 mg PO DAILY atorvastatin 80 mg tablet 80 mg PO DAILY Qty: 90 3RF warfarin 5 mg tablet 10 - 15 mg PO DAILY Qty: 270 3RF Protocol: Dose Management Condition: Tuesday Dose/Route: 10 mg Instruction: 2 x 5 mg tablets Condition: Tuesday Dose/Route: 15 mg Instruction: 3 x 5 mg tablets Condition: Tuesday Dose/Route: 10 mg Instruction: 2 x 5 mg tablets Condition: Tuesday Dose/Route: 10 mg Instruction: 2 x 5 mg tablets Condition: Dose/Route: 10 mg Instruction: 2 x 5 mg tablets Condition: Tuesday Dose/Route: 15 mg Instruction: 3 x 5 mg tablets Condition: Tuesday Dose/Route: 10 mg Instruction: 2 x 5 mg tablets Protocol Text: Adjustment Start Date: Tuesday02/03/24 INR Value: 2.9 INR Date: 02/03/24 Recheck Date: 02/10/24 Patient Comments: m-w-f 15mg all other days are 10 metoprolol succinate 50 mg tablet extended release 24 hr 25 mg PO DAILY Discharge Instructions Instructions: Arrhythmias (DC) Additional Instructions: Continue on your prescribed metoprolol at night, if you have another episode you may try taking a single dose of the metoprolol to tartrate, this is a shorter acting medication Follow-up with your flask cleaner this week and I will put you on the follow-up list for [facility] and your primary care physician for reassessment Should you have return of symptoms or any new or worsening complaints please be reevaluated in the emergency department, your tests are reassuring today Referrals: Chuck Khan MD [Primary Care Provider] - 1 day HPI General Date/Time Provider Initiated Documentation: 02/13/24 13:24. HPI Narrative: 58-year-old male presenting with acute onset of tachycardia 1 hour prior to arrival. History of atrial flutter, SVT, and atrial fibrillation with mechanical valve and stent with coronary artery disease history, taking warfarin as prescribed. Denies any chest discomfort. Denies any fever or chills. Denies any change in medication or missed medications. Denies any illicit drug use or alcohol consumption. Related Data Home Medications ?Medication ?Instructions ?Recorded ?Confirmed Baby Aspirin 81 mg PO DAILY 11/15/12 02/13/24 metoprolol succinate 50 mg 25 mg PO DAILY 01/20/23 02/13/24 tablet,extended release 24 hr lorazepam 1 mg tablet 1 mg PO TID PRN anxiety #45 tabs 02/10/23 02/13/24 atorvastatin 80 mg tablet 80 mg PO DAILY #90 tabs 05/19/23 02/13/24 warfarin 5 mg tablet 10 - 15 mg PO DAILY #270 tabs 06/04/23 02/13/24 risankizumab-rzaa 150 mg/mL 150 mg subcut Q12W psoriasis #1 mL 06/07/23 02/13/24 subcutaneous pen injector (Skyrizi) metoprolol tartrate 25 mg tablet 25 mg PO DAILY #10 tabs 02/13/24 Previous Rx's ?Medication ?Instructions ?Recorded lorazepam 1 mg tablet 1 mg PO TID PRN anxiety #45 tabs 02/10/23 atorvastatin 80 mg tablet 80 mg PO DAILY #90 tabs 05/19/23 warfarin 5 mg tablet 10 - 15 mg PO DAILY #270 tabs 06/04/23 risankizumab-rzaa 150 mg/mL 150 mg subcut Q12W psoriasis #1 mL 06/07/23 subcutaneous pen injector (Skyrizi) metoprolol tartrate 25 mg tablet 25 mg PO DAILY #10 tabs 02/13/24 Allergies Allergy/AdvReac Type Severity Reaction Status Date / Time adalimumab (From Humira) Allergy Intermediate hives Verified 02/13/24 13:24 General Stated Complaint: Chest Pain EZEQUIEL: 2 Exam Narrative Exam Narrative: Alert and oriented 58-year-old male in no acute distress, sinus tachycardia noted on monitor, lungs clear to auscultation, murmur noted from mechanical valve, no peripheral edema or swelling or tenderness, alert and oriented x 4 Course Vital Signs Vital signs: Vital Signs Temperature 36.5 C 02/13/24 13:25 Pulse 156 H 02/13/24 13:25 Respiratory Rate 16 02/13/24 13:25 Blood Pressure 153/103 H 02/13/24 13:25 Pulse Oximetry 96 02/13/24 13:25 Temperature 36.5 C 02/13/24 13:25 Temperature Source Oral 02/13/24 13:25 Pulse 76 02/13/24 15:15 Pulse 76 02/13/24 15:20 Respiratory Rate 25 H 02/13/24 15:20 Respiratory Effort Normal, Non-Labored 02/13/24 13:31 Respiratory Depth Normal 02/13/24 13:31 Respiratory Pattern Normal 02/13/24 13:31 Blood Pressure 135/81 02/13/24 15:15 Blood Pressure Mean 97 02/13/24 15:15 Blood Pressure Position Sitting 02/13/24 13:25 Pulse Oximetry 94 02/13/24 15:20 Oxygen Delivery Method Room Air 02/13/24 13:25 Oxygen Flow Rate 0 02/13/24 13:25 Pain Level 0 02/13/24 13:25 Lab/Test Results Lab/Test Results: Laboratory Tests Range/Units 02/13/24 02/13/24 02/13/24 13:35 14:32 16:32 WBC (4.4-10.8) 10^3/uL 10.59 RBC (4.36-5.78) 10^6/uL 5.42 Hgb (13.5-17.5) g/dL 17.2 Hct (40.0-50.0) % 49.3 MCV (80-95) fL 91 MCH (27.0-33.0) pg 31.7 MCHC (32.0-36.0) % 34.9 RDW (11.8-14.1) % 15.1 H Plt Count (130-400) 10^3/uL 207 MPV (8.0-11.0) fL 9.6 Immature Gran % % 0.6 Neutrophils % % 71.0 Lymphocytes % % 18.3 Monocytes % % 5.7 Eosinophils % % 3.4 Basophils % % 1.0 Nucleated RBC % (0.0-0.3) % 0.0 Absolute Neutrophils (1.2-6.7) 10^3/uL 7.52 H Absolute Lymphocytes (1.2-3.4) 10^3/uL 1.94 Absolute Monocytes (0.1-0.8) 10^3/uL 0.60 Absolute Eosinophils (0.0-0.7) 10^3/uL 0.36 Absolute Basophils (0.0-0.2) 10^3/uL 0.11 PT (9.1-11.1) sec 31.8 H INR (0.9-1.1) 3.5 H Sodium (136-145) mmol/L 140 Potassium (3.5-5.1) mmol/L 4.1 Chloride (98-107) mmol/L 104 Carbon Dioxide (21.0-32.0) mmol/L 30.6 Anion Gap (3-11) mmol/L 5.4 BUN (7-18) mg/dL 12 Creatinine (0.70-1.30) mg/dL 1.0 Est GFR (CKD-EPI 2020) (mL/min/1.73m2) 88.33 Glucose (74-106) mg/dL 167 H Calcium (8.5-10.1) mg/dL 9.9 Magnesium (1.8-2.4) mg/dL 1.9 Total Bilirubin (0.2-1.0) mg/dL 0.89 AST (15-37) U/L 66 H ALT (16-63) U/L 86 H Alkaline Phosphatase (46-116) U/L 86 Troponin I (<or=76) ng/L 12 Cancelled Cancelled NT-Pro-B Natriuret Pep (<300) pg/mL 55 Total Protein (6.4-8.2) g/dL 8.6 H Albumin (3.4-5.0) g/dL 4.5 TSH (0.36-3.74) uIU/mL 2.91 Medical Decision Making 58-year-old male with known history of dysrhythmia and mechanical valve presenting with tachycardia just prior to arrival. Patient took his metoprolol and Coumadin last evening. On arrival, I suspect patient is in supraventricular tachycardia although the rate is relatively slow between 140 and 155. I will give a single dose of 20 mg of diltiazem after reviewing patient's medical history that of 25 mg of metoprolol succinate at night. He did take the metoprolol last evening. Patient had conversion into sinus rhythm after a single dose of diltiazem. Blood pressure stable and heart rate or telemetry was observed for approximately an hour and a half without return to SVT or atrial flutter. I suspect this is more of an SVT versus atrial flutter and patient will need close outpatient follow-up with cardiology. His labs are reassuring including electrolytes and TSH. He will be given metoprolol to tartrate to supplement with his succinate as needed. He will placed on referral list to follow-up with Dr. Khan and his flask cleaner within the next 24 to 48 hours. Patient remains pain-free and is asymptomatic at time of discharge home normal sinus rhythm Quality:SDOH Health Related Social Needs: No Data to Display PFSH All Active Problems (Updated 02/13/24 @ 15:23 by DEBBIE Meredith) Dysrhythmia (Acute) Febrile illness (Acute) Subtherapeutic international normalized ratio (INR) (Acute) Lymphocytopenia (Acute) Elevated transaminase level (Acute) Right knee pain (Acute) Hypertriglyceridemia (Acute) Anxiety (Acute) Coronary arteriosclerosis (Acute) Hx of CABG and stent Essential hypertension (Acute 11/15/12) Family history of prostate cancer (Acute 11/02/16) Brother age 52 Hyperlipidemia (Acute) Psoriasis (Acute 02/16/10) [facility] (Acute 09/23/17) Chronic anticoagulation (Acute) History of mitral valve replacement with metallic valve (Acute) on caumadin Erectile dysfunction (Acute) Upper respiratory infection (Acute) Afib (Chronic) Atrial flutter (Acute) Surgical History Mitral valve replaced Vasectomy (~2001) Stent placement (~2002) X 2 Repair of inguinal hernia (~2001) RIGHT Family History (Updated 12/07/23 @ 13:29 by Tawnya Garces) Mother Heart disease Hyperlipidemia Hypertension Father Heart disease Hyperlipidemia Hypertension Substance use disorder Stroke Maternal Grandmother Hypertension Hyperlipidemia Heart disease Maternal Grandfather No problems noted. Paternal Grandmother No problems noted. Paternal Grandfather No problems noted. Social History (Updated 12/07/23 @ 16:15 by Tawnya Garces) Smoking/Tobacco Use Status: Unknown Smokeless tobacco user: chewing tobacco Second Hand Exposure: Yes Smoking risk assessment performed?: Yes Alcohol Intake: never Drug use: Occasionally Substance use type: marijuana Adopted: No Caregiver/Support person: No Household members: spouse Housing: house Number of Children: 3 number of grandchildren: 0 Communication Needs: None Education Level: high school Do you need help understanding health information?: Never current occupation: [employer] Pets and animals: Yes Pets and animals: cat(s), dog(s) and horse(s) Sexually active: Yes Do you think of yourself as: straight/heterosexual Current gender identity: male What is your relationship status?: How often do you talk on the phone with friends or family?: three or more times per week How often do you get together with friends or relatives?: three or more times per week How often do you attend shinto or christianity services?: 1-3 times per year Do you belong to any clubs or organized social groups?: no Panel score (0-1 are the most socially isolated patients): 2 What type of physical activity do you participate in: walking and other Details: Hunting, Fishing, Painting, Chores Duration: > 90 minutes/day Frequency: daily Padmini/Scientologist: Non voodoo Special padmini needs: Yes Details: lots Seatbelt use: never Helmet use: No Drive intox or ride w/intox chassis driver: No Firearms in home: Yes Firearms unloaded and locked: No Do you feel safe at home: Yes Do you feel safe in your relationship?: Yes Would you like helpful sources: No
== END 2024-02-13 15:35 | disposition home or self-care (01) ==
PROVIDERS: Emergency Provider Physician Assistant; PCP Family Medicine
DX: R00.0 Tachycardia, unspecified (principal); I48.91 Unspecified atrial fibrillation; Z95.2 Presence of prosthetic heart valve
CPT/HCPCS: 80053; 93005; 96374; 99284; 83735; 83880; 84443; 84484; 85025; 85610; 93010

== ENCOUNTER 2024-09-05 04:10 | Outpatient (CLI) | payer BC, SELFPAY ==
--- NOTE | 2024-09-05 12:34 | W.NUTRFU ---
Date of service: 09/05/24 Time of Service: 11:00 Nutrition Note NOTE: Jese referred to nutrition visit d/t new onset diabetes. I don't see recent a1c in his chart - just a value of 5.8% sept 2021. Jese would like to lose a little weight as well and be healthy - he has a hunting trip planned and wants to be able to keep up with the activity/exercise involved in the hikes. He recently made changes that include giving up his 2 cokes per day, and eating less potatoes/white bread. States he has lost betwenn 6-7lbs over the last 2 weeks. No DM meds noted at this time. We reviewed sample menus based on recommended goals for macros: ~2000kcals (current SHERON is 2391kcals) and 200grams total carbs (at least 30g fiber and no more than 30g addded sugar), 150g protein (significant amount from plant sources), and 66g total fat with 22g or less from SFA. Suggested whey protein to help meet 150g protein goal and make sure grain products have a min of 3 g fiber per serving (breads, crackers etc) Jese given my card to call with any questions - told to keep up with the changes he has made like decreasing added sugars and low fiber starch choices. Also emphasied lower fat diet and especially low SFA. Will remain available if he has any questions or need for more follow up visits to help meet his goals Time Spent in Nutritional Counseling and Treatment: 25 min
== END 2024-09-05 04:11 | disposition home or self-care (01) ==
LOC: DS 04:10
PROVIDERS: PCP Family Medicine; Visit Provider Dietitian, Registered
DX: E11.9 Type 2 diabetes mellitus without complications (principal)
CPT/HCPCS: 00123; 97802

== ENCOUNTER 2025-01-11 01:56 | Outpatient (CLI) | payer BC, SELFPAY ==
[2025-01-11 15:21] LABS: Hemoglobin A1C 5.5 % (<5.7)
[2025-01-11 17:33] LABS: ALT 55 U/L (10-49); AST 51 U/L (<34); Albumin 5.0 g/dL (3.2-5.0); Alkaline Phosphatase 76 U/L (46-116); Anion Gap 7.7 mmol/L (3-11); BUN 14 mg/dL (9-23); Bilirubin, Total 1.00 mg/dL (0.2-1.2); CO2 28.3 mmol/L (20.0-31.0); Calcium 9.7 mg/dL (8.3-10.6); Chloride 105 mmol/L (98-107); Cholesterol 145 mg/dL (<200); Glucose 97 mg/dL (74-106); HDL Cholesterol 37 mg/dL (>40); Potassium 4.4 mmol/L (3.5-5.1); Sodium 141 mmol/L (136-145); Total Protein 8.2 g/dL (5.7-8.2)
== END 2025-01-11 01:57 | disposition home or self-care (01) ==
LOC: LOS 01:56
PROVIDERS: PCP Family Medicine; Visit Provider Family Medicine
DX: R73.9 Hyperglycemia, unspecified (principal); R74.01 Elevation of levels of liver transaminase levels; E78.5 Hyperlipidemia, unspecified; E78.1 Pure hyperglyceridemia
CPT/HCPCS: 36415; 80053; 80061; 83036